=== PATIENT | male | born 1950 | race Caucasian/White ===

== ENCOUNTER 2023-07-21 05:04 | Emergency (ER) | payer MEDICARE, SELFPAY ==
[2023-07-21 05:07] VITALS: BP 136/94
--- NOTE | 2023-07-21 06:18 | ED.GENMED ---
History of Present Illness
General
Chief Complaint: Musculo-Skeletal Complaint
Source: patient
Exam Limitations: none
Time Seen by Provider: 07/21/23 06:01
Nursing documentation reviewed up to this point in time: agreed with
Travel History
Have you had any contact with someone who has COVID-19?: No
Do you have any symptoms of coronavirus? Fever > 100 degrees, chills, cough, shortness of breath, sore throat, loss of taste or smell, muscle aches, or headache?: No
History of Present Illness
History of Present Illness:
73-year-old male with a past medical history of hypertension, Parkinson's disease who presents to the emergency department for evaluation after slip and fall complaining of left rib pain. 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
around 7 PM. He says that he lost his balance and fell from ground-level. He says that he landed on his left side and injured his left ribs. He says that he did not hit his head or lose consciousness. He denies any headache. Denies any neck
pain. Denies any back pain. Denies any shortness of breath. He denies any abdominal pain. No pain in his arms or his legs. He has been ambulatory since the fall�typically ambulates with a cane. He says that he took some naproxen last night
before bed but this morning when he woke up his pain was worse and so he came to the emergency room to be assessed. He he denies being on any blood thinners�medication list shows that he is on full dose aspirin but patient denies to me, says he is
no longer taking.
Review of Systems
Review of Systems
All Other Systems: ROS reviewed and negative except as documented in HPI and ROS
Constitutional: Denies fever
Respiratory: Denies trouble breathing
Cardiac: Reports chest pain (Rib pain); Denies palpitations
ABD/GI: Denies abdominal pain, nausea or vomiting
: Denies flank pain
Musculoskeletal: Denies neck pain or back pain
Neurological: Denies dizzy, headache, weakness or numbness
Phy Exam
Physical Exam
Physical Exam:
General: Awake, alert, oriented x3; bradykinesia noted
Head: Normocephalic, atraumatic
Eyes: Conjunctiva normal, pupils equal round and reactive to light bilaterally
Throat: Airway intact, handling secretions, mouth/tongue atraumatic
Neck: Trachea midline, no tenderness in the cervical spine
Back: No signs of trauma the back or flank; no tenderness in the thoracic or lumbar spine; no tenderness in the posterior ribs
Lungs: Clear to auscultation bilaterally, no wheezing, rales, rhonchi
Heart: Regular rate and rhythm, no murmurs, gallops, or rubs; he has tenderness around ribs 7, 8, and 9 anterior-lateral around the nipple line; no chest wall tenderness, no ecchymosis to the chest wall
Abd: Soft, non distended, nontender with no abdominal bruising
Neuro: Cranial nerves grossly intact, speech fluid, ambulatory in the emergency room
Skin: no rash
Extremities: Atraumatic, moving all extremities to full active range of motion without apparent discomfort, able to bear weight and walk in the emergency room, no edema in extremities, warm well-perfused
Scores
Heart Failure Risk
Heart Failure Risk Score: Not Applicable
Heart Score for Chest Pain Patients
STEMI patient?: Not applicable
Withdrawal Assessment of Alcohol
Withdrawal Assessment Completed?: Not applicable
Course
Orders/Labs/Results
Orders:
Orders
07/21/23 05:13
Ribs, Left 3 View W/PA Chest CR [CR Ribs-left 3 Vw W/pa Chest] Urgent
Comment:
Reason For Exam: slip and fall on ice yesterday
07/21/23 06:13
Acetaminophen [Tylenol] 1,000 mg PO NOW STA
Ketorolac [Toradol] 30 mg IM NOW STA
Lidocaine [Lidocaine 4% Patch] 1 patch TOPICAL ONCE ONE
07/21/23 07:09
Incentive Spirometry [Rx Incentive Spirometry] [RESP] Urgent
Frequency: q1h while awake
Vital Signs
Initial and Last Documented VS:
Initial Vital Signs
Temp Pulse Resp BP Pulse Ox
36.6 C 94 24 136/94 95
07/21/23 05:07 07/21/23 05:07 07/21/23 05:07 07/21/23 05:07 07/21/23 05:07
Last Documented Vital Signs
Temp Pulse Resp BP Pulse Ox
36.6 C 87 18 138/75 99
07/21/23 05:07 07/21/23 07:14 07/21/23 07:14 07/21/23 07:14 07/21/23 07:14
MDM/Problems Addressed
Differential Diagnosis Includes:
Rib fractures, bruised ribs, costochondritis
MDM/Problems Addressed:
73-year-old male presents after mechanical trip and fall last night complaining of pain in his left ribs. No other injuries. Not on blood thinners. Vital signs here within normal limits. Exam as above. He had an x-ray/rib series ordered in
triage reviewed independently by fortino to show 3 left-sided rib fractures in the area of concern. No pneumothorax or hemothorax noted. He has no other injuries; no head trauma�no indication for neuroimaging or other imaging at this point.
Pain currently uncontrolled. I had a long discussion with the patient--explained increased morbidity and mortality with multiple rib fractures in patient greater than 70 years old. Explained that admission likely indicated for pain control and
observation, incentive spirometry. Patient strongly prefers to try to control his pain here and be discharged home. Will trial Toradol, Tylenol, Lidoderm to start and reassess.
After pain medication patient says his pain is down to a 2/10 that he feels much better. He is requesting to be discharged. Using shared decision making patient will be discharged with his pain well controlled here; provided incentive spirometer
to take home and instructions on use. Will have him take Tylenol/Motrin and use Lidoderm [id number] for the next few days and follow-up with his primary care physician. He feels comfortable with this plan. Spoke about return precautions and
all questions answered.
Chronic conditions affecting care:
Parkinson's with chronic balance issues�presents after a fall
*Radiology
Radiology exam reviewed: preliminary read by ED provider
*Pulse Oximetry
Patient hypoxic: no
*Critical Care Note
Total Time (30-74mins, 75-104mins- exclusive of procedures): Not Applicable
Data Reviewed
Source: patient
Patient Management
Escalation/DeEscalation of care consider admission/obs:
Admission likely indicated and recommended but after long discussion with patient his preference is to try to control pain here and be discharged�using shared decision making discharged with strict return precautions
ED Attending Note
-
Portions of this chart may have been created with voice recognition software.� Occasional wrong word or��sound alike� substitutions may have occurred due to the inherent limitations of voice recognition software.
Discharge Plan
Departure
Patient Disposition: Home (Routine Discharge)
Date of Disposition: 07/21/23
Time of Disposition: 07:06
Patient with high blood pressure during this ER visit?: No
Discharge Problem:
Multiple rib fractures
Instructions: Rib fractures in adults
Prescriptions:
New
ibuprofen 400 mg tablet
400 mg PO Q6H PRN (Reason: Pain) Qty: 30 0RF
acetaminophen 500 mg capsule
1,000 mg PO Q6H PRN (Reason: Pain) Qty: 60 0RF
lidocaine 5 % adhesive patch,medicated
1 patch topical DAILY Qty: 30 0RF
No Action
clonidine HCl 0.1 MG tablet
0.1 mg PO DAILY
lisinopril-hydrochlorothiazide 1 EACH tablet
1 ea PO DAILY
Levothyroxine
0.088 mg PO DAILY
mupirocin 1 APPLIC ointment
intranasal BID
oxycodone 5 MG tablet
5 mg PO Q4HPRN PRN (Reason: pain) Qty: 60 0RF
Rx Instructions:
1-2 tabs po Q4-6 hours prn
prochlorperazine maleate 5 MG tablet
5 mg PO Q6HPRN PRN (Reason: nausea) Qty: 40 0RF
docusate sodium 100 MG capsule
100 mg PO BID Qty: 30 0RF
sennosides [senna] 1 TABLET tablet
2 tab PO BID Qty: 40 0RF
acetaminophen 325 MG tablet
650 mg PO Q4HPRN PRN (Reason: pain, fever) Qty: 60 0RF
aspirin 325 MG tablet,delayed release (DR/EC)
325 mg PO DAILY Qty: 30 0RF
Referrals:
Андрей Manriquez DO [Family Provider] - Follow up in 5-7 days
Activity Restrictions/Additional Instructions:
Thank you for visiting the Emergency Department at [facility].
1. Please schedule a follow up appointment as directed. Call first thing tomorrow morning to make an appointment.
2. If indicated, please take your medications as instructed and indicated on discharge paperwork.
3. If any of your symptoms do not improve, or persist, or become more severe within 6-12 hours, please return to the emergency department for further care.
4. Please return to the emergency department if you develop a headache, neck pain/stiffness, fever greater than 100.4F, chest pain, shortness of breath, persistent nausea, vomiting, slurred speech, difficulty walking, numbness/tingling, weakness,
signs of infection or any other symptoms that are worrisome to you.
Please call [phone] if you have any questions.
Interventions
Interventions:
*Risk Screen - Suicide Last Done: 07/21/23 05:07
*General Assessment Last Done: 07/21/23 06:20
*Neglect/Abuse Screening Last Done: 07/21/23 05:07
ED- Fall Risk Assessment Last Done: 07/21/23 06:28
*ED COVID-19 Vaccine History Last Done: 07/21/23 06:20
*Nursing Disposition Last Done: 07/21/23 07:14
ED-Musculoskeletal Assessment Last Done: 07/21/23 06:28
ED- Neurological Assessment Last Done: 07/21/23 06:28
ED-Skin Assessment Last Done: 07/21/23 06:28
Discharge Date and Time
Discharge Date/Time: 07/21/23 07:15
[2023-07-21 06:20] VITALS: BMI 33.2
[2023-07-21] MEDS: TORADOL 30 MG IM (06:21)
[2023-07-21] MEDS: TYLENOL 1000 MG PO (06:21)
[2023-07-21] MEDS: LIDOCAINE 4% PATCH 1 PATCH TOPICAL (06:22)
[2023-07-21 07:14] VITALS: BP 138/75
== END 2023-07-21 07:15 | disposition home or self-care (01) ==
LOC: EMR 05:04
PROVIDERS: EMERGENCY PHYSICIAN Emergency Medicine; FAMILY PHYSICIAN Family Medicine
DX: S22.42XA Multiple fractures of ribs, left side, initial encounter for closed fracture (principal); W00.0XXA Fall on same level due to ice and snow, initial encounter; I10 Essential (primary) hypertension; G20.A1 Parkinson's disease without dyskinesia, without mention of fluctuations; M19.90 Unspecified osteoarthritis, unspecified site; Z85.828 Personal history of other malignant neoplasm of skin; Z91.048 Other nonmedicinal substance allergy status
CPT/HCPCS: 99284; 96372; 71101

== ENCOUNTER 2023-10-28 12:46 | Inpatient (IN) | payer MEDICARE, SELFPAY ==
[2023-10-23 18:20] VITALS: BP 136/88
[2023-10-23 19:39] VITALS: BP 153/80
[2023-10-23 20:35] VITALS: BP 142/79
--- NOTE | 2023-10-23 21:31 | ED.GENMED ---
History of Present Illness
General
Chief Complaint: Fall
Source: patient
Exam Limitations: none
Time Seen by Provider: 10/23/23 19:49
Travel History
Have you had any contact with someone who has COVID-19?: No
Do you have any symptoms of coronavirus? Fever > 100 degrees, chills, cough, shortness of breath, sore throat, loss of taste or smell, muscle aches, or headache?: No
History of Present Illness
History of Present Illness:
73yr old male with past medical history of Parkinson's presents to the ER for evaluation after fall. Patient tripped at work fell hitting his head. He denies loss of consciousness, fall was witnessed. He reports he does have Parkinson's and has
issues with balance. He is followed by Dr. Don Duran in [place], [place].
He reports he fell yesterday . He is not on blood thinners. Denies any headache. Unsure of his last tetanus.
Review of Systems
Review of Systems
Allergies reviewed?: Yes
All Other Systems: ROS reviewed and negative except as documented in HPI and ROS
Constitutional: Reports no symptoms; Denies fever, fatigue or chills
Respiratory: Reports no symptoms
Cardiac: Reports no symptoms
ABD/GI: Reports no symptoms; Denies nausea or vomiting
Skin: Reports other (laceration to left forehead )
Neurological: Denies dizzy or headache
Psychiatric: Reports no symptoms
Phy Exam
General Physical Exam
General Presentation: no apparent distress
General age: appears stated age
General Skin: warm and dry
General Habitus: normal
General Mental: alert
General Hydration: appears well hydrated
Eye Exam
Eye Exam: PERRL and EOMI
Eye Exam General: PERRL: bilateral and EOM intact: bilateral
Pupil Exam: Bilateral: round and reactive
Neurological Exam
Neurological Exam: alert and oriented x3
Musculoskeletal Exam
Musculoskeletal Exam: full ROM
Skin Exam
Skin Exam: normal color, warm/dry and other (+ vertical full-thickness linear laceration approximate 4 cm to left forehead with surrounding hematoma)
Psychiatric Exam
Psychiatric Exam: normal mood/affect
Course
Orders/Labs/Results
Orders:
Orders
10/23/23 19:49
CT Head W/o Iv Contrast Urgent
Comment:
Reason For Exam: trauma
10/23/23 19:50
CT Cervical Spine W/o Iv Contr Urgent
Comment:
Reason For Exam: trauma
10/23/23 21:33
Tetanus/Diphth/Acelpertussis [Adacel] 0.5 ml IM .ONCE ONE
10/23/23 22:03
IV Insert/Care/Rem.- Treatment PRN
10/23/23 22:44
Complete Blood Count/With Diff Urgent
Comprehensive Metabolic Panel Urgent
Urinalysis Reflex To Culture Urgent
Date Specimen was Collected: 10/23/23
Time Specimen was Collected: 22:27
Urine Microscopic Reflex Cult Urgent
Abnormal Lab Results
10/23/23
22:44
Abs Immat Gran (auto) 0.1 H 10^3/uL
(0-0.05)
Absolute Neuts (auto) 6.6 H 10^3/uL
(1.4-6.5)
Absolute Monos (auto) 1.0 H 10^3/uL
(0.1-0.6)
Immature Gran % 1.2 H %
(0-0.5)
Lymphocytes % 16.6 L %
(20.5-51.1)
Monocytes % 10.8 H %
(1.7-9.3)
Potassium 3.3 L mmol/L
(3.5-5.1)
Glucose 142 H mg/dl
(70-99)
Ur Occult Blood Reflex 1+ A
(Negative)
Urine RBC 7-10 A /HPF
(0-2)
10/23/23 22:44
10/23/23 22:44
Vital Signs
Initial and Last Documented VS:
Initial Vital Signs
Temp Pulse Resp BP Pulse Ox
98.3 F 83 18 136/88 98
10/23/23 18:20 10/23/23 18:20 10/23/23 18:20 10/23/23 18:20 10/23/23 18:20
Last Documented Vital Signs
Temp Pulse Resp BP Pulse Ox
98.4 F 75 16 136/74 93
10/23/23 22:44 10/23/23 22:44 10/23/23 22:44 10/23/23 22:44 10/23/23 22:44
Procedures
Laceration Closure
left anterior forehead:
Status of Wound: clean
Size of Wound in cm: 4
Description of Wound Edges: sharp
Preparation: cleaned with saline
Anesthesia: 1% Lidocaine with epi
Revision/Debridement: routine- no revision
Type of Closure: single layer closure and interrupted sutures
Skin Closure Material: 5-0 prolene
Number of sutures: 13
MDM/Problems Addressed
Differential Diagnosis Includes:
Not limited to intracranial hemorrhage scalp laceration head injury
MDM/Problems Addressed:
Patient 73-year-old male with balance issues from Parkinson's slipped and fell at work hitting left head. Patient is followed by neurologist in [place] admits to having more frequent falls fell yesterday.
he does have a laceration with surrounding hematoma ;no loss of consciousness no blood thinners .he is awake alert no nausea vomiting answering questions however very ataxic and unsteady. Patient required 2 nurses to walk next to him patient is
almost ataxic. No other complaints of injury or pain. not safe to go home. lives alone will admit.
Chronic conditions affecting care:
Parkinson's
*Radiology
Radiology exam reviewed: radiology read reviewed
*Pulse Oximetry
Patient hypoxic: no
*Critical Care Note
Total Time (30-74mins, 75-104mins- exclusive of procedures): Not Applicable
ED Attending Note
-
Portions of this chart may have been created with voice recognition software.� Occasional wrong word or��sound alike� substitutions may have occurred due to the inherent limitations of voice recognition software.
Discharge Plan
Departure
Patient Disposition: Admit
Date of Disposition: 10/23/23
Time of Disposition: 23:24
Admit to: Med/Surg
Admit to doctor: hospitalist
Presentation/result/management discussed w/ accepting MD/DO: Hospitalist
Patient with high blood pressure during this ER visit?: Yes
Condition: Fair
Covid-19: Not Applicable
Discharge Problem:
Head injury, Laceration of scalp, frequent falls, Ataxia
Prescriptions:
No Action
clonidine HCl 0.1 MG tablet
0.1 mg PO DAILY
lisinopril-hydrochlorothiazide 1 EACH tablet
1 ea PO DAILY
Levothyroxine
0.088 mg PO DAILY
mupirocin 1 APPLIC ointment
intranasal BID
oxycodone 5 MG tablet
5 mg PO Q4HPRN PRN (Reason: pain) Qty: 60 0RF
Rx Instructions:
1-2 tabs po Q4-6 hours prn
prochlorperazine maleate 5 MG tablet
5 mg PO Q6HPRN PRN (Reason: nausea) Qty: 40 0RF
docusate sodium 100 MG capsule
100 mg PO BID Qty: 30 0RF
sennosides [senna] 1 TABLET tablet
2 tab PO BID Qty: 40 0RF
acetaminophen 325 MG tablet
650 mg PO Q4HPRN PRN (Reason: pain, fever) Qty: 60 0RF
aspirin 325 MG tablet,delayed release (DR/EC)
325 mg PO DAILY Qty: 30 0RF
ibuprofen 400 mg tablet
400 mg PO Q6H PRN (Reason: Pain) Qty: 30 0RF
acetaminophen 500 mg capsule
1,000 mg PO Q6H PRN (Reason: Pain) Qty: 60 0RF
lidocaine 5 % adhesive patch,medicated
1 patch topical DAILY Qty: 30 0RF
Referrals:
Андрей Manriquez DO [Family Provider] -
Interventions
Interventions:
*Risk Screen - Suicide Last Done: 10/23/23 18:20
*General Assessment Last Done: 10/23/23 18:20
*Neglect/Abuse Screening Last Done: 10/23/23 18:20
*ED COVID-19 Vaccine History Last Done: 10/23/23 18:20
ED-Musculoskeletal Assessment Last Done: 10/23/23 19:42
ED- Neurological Assessment Last Done: 10/23/23 20:36
ED-Skin Assessment Last Done: 10/23/23 19:42
Discharge Date and Time
Print Language: ICELANDIC
[2023-10-23] MEDS: ADACEL 0.5 ML IM (21:47)
[2023-10-23 22:43] VITALS: BMI 34.9
[2023-10-23 22:44] VITALS: BP 136/74
[2023-10-23 22:52] LABS: Urine Albumin Trace (Neg - Trace); Urine Bilirubin Negative (Negative); Urine Character Clear (Clear); Urine Color Yellow; Urine Glucose Negative (Negative); Urine Ketone Negative (Negative); Urine Leukocyte Negative (Negative); Urine Nitrite Negative (Negative); Urine Occult Blood 1+ (Negative); Urine Specific Gravity 1.025 (<1.030); Urine Urobilinogen Negative (Neg - 1+)
[2023-10-23 22:53] LABS: % Basophils 0.6 % (0-2); % Immature Granulocytes 1.2 % (0-0.5); % Lymphocytes 16.6 % (20.5-51.1); % Monocytes 10.8 % (1.7-9.3); % Neutrophils 70.8 % (42.2-75.2); Absolute Basophils 0.1 10^3/uL (0-0.2); Absolute Immature Granulocytes 0.1 10^3/uL (0-0.05); Absolute Lymphocytes 1.6 10^3/uL (1.2-3.4); Absolute Neutrophils 6.6 10^3/uL (1.4-6.5); Hematocrit 45.1 % (39.0-52.0); Hemoglobin 15.1 g/dL (13.0-18.0); Mean Corp Hgb Conc. 33.5 g/dL (33.0-37.0); Mean Corpuscular Hgb 30.5 pg (27.0-31.0); Mean Corpuscular Volume 91.1 fL (80.0-94.0); Mean Platelet Volume 10.4 fL (7.4-10.4); Nucleated Red Blood Cells % 0 % (-); Platelet Count 219 10^3/uL (130-400); Red Blood Cell Count 4.95 10^6/uL (4.70-6.10); White Blood Cell Count 9.3 10^3/uL (4.8-10.8)
[2023-10-23 23:00] VITALS: BP 133/79
[2023-10-23 23:00] LABS: Urine Squamous Cell 0-2 /LPF (Few)
[2023-10-23 23:01] LABS: Urine White Cell None Seen /HPF (0-5)
[2023-10-23 23:14] LABS: ALT (SGPT) 26 U/L (0-50); AST (SGOT) 29 U/L (17-59); Albumin 4.1 g/dl (3.5-5.0); Alkaline Phosphatase 82 U/L (38-126); Blood Urea Nitrogen 18 mg/dl (9-20); Calcium 9.2 mg/dl (8.4-10.2); Carbon Dioxide 27 mmol/L (22-30); Chloride 103 mmol/L (98-107); Estimated Creatinine Clearance 117 ml/min; Glucose 142 mg/dl (70-99); Potassium 3.3 mmol/L (3.5-5.1); Sodium 136 mmol/L (135-145); Total Bilirubin 0.5 mg/dl (0.2-1.3); Total Protein 7.2 g/dl (6.3-8.2); eGFR > 60.00
[2023-10-24] VITALS (8 sets, daily range): BP systolic 116–160; BP diastolic 65–95; PULSE 75–84; BMI 33.9
--- NOTE | 2023-10-24 00:05 | HPS.HSE ---
Family Physician
-
Family Physician: Андрей Manriquez
Chief Complaint
-
Fall with Head Injury
History of Present Illness
Patient is a 73 y/o male with a past medical history of Parkinson's disease, hypertension, hyperlipidemia, and hypothyroidism who presents for a mechanical fall earlier today. He reports that he stepped backwards, which prompted his fall. He
normally ambulates with a cane and states that stepping backwards normally precipitates his falls. When he fell today, he hit his head on the corner of a table. He admits to a mechanical fall yesterday that was precipitated by stepping backwards. He
fell into a couch and injured his ribs on the right side. He denies loss of consciousness, lightheadedness, dizziness, palpitations, chest pain, shortness of breath. He admits that he has felt increasingly unsteady over the past few weeks.
Medical History
Past Medical History
Past Medical History: Reports Other
Additional Past Medical History:
Parkinson's Disease
Essential Hypertension
Hypothyroidism
Depression
Past Surgical History: Reports Other
Additional Past Surgical History:
Multiple Moh's Procedures
Umbilical Hernia Repair
Right Total Hip Replacement
Social History
Tobacco: Former Smoker
Alcohol: Occasional
Family History
Family History: Not pertinent
Allergies / Home Medications
Allergies reflects when Allergies were last updated in [facility].
Home Medications with original date entered in [facility]
Allergy/Medication List:
Allergies
Allergy/AdvReac Type Severity Reaction Status Date / Time
adhesive Allergy inflamation Verified 10/23/23 18:22
Home Medications
levothyroxine 88 mcg tablet 88 mcg PO DAILY ##0 02/16/18
amlodipine 5 mg tablet 5 mg PO HS 10/23/23
bupropion HCl 300 mg 24 hr tablet, extended release 300 mg PO DAILY 10/23/23
hydrochlorothiazide 25 mg tablet 25 mg PO DAILY 10/23/23
rasagiline 1 mg tablet 1 mg PO DAILY 10/23/23
valsartan 80 mg tablet 80 mg PO HS 10/23/23
Review of Systems
-
A 12 point ROS was completed and negative except as noted: Yes
Constitutional: Denies Fever or Chills
Respiratory: Denies Cough or Trouble Breathing
Cardiac: Denies Chest Pain or Palpitations
Physical Exam
Vital Signs
Vital Signs
Temp Pulse Resp BP Pulse Ox
98.4 F 77 22 133/79 94
10/23/23 22:44 10/23/23 23:15 10/23/23 23:15 10/23/23 23:00 10/23/23 23:15
Physical Exam
General: Comfortable and Conversant
HEENT: Anicteric, Moist mucous membranes, PERRLA (EOMI) and Other (Laceration Left Forearm)
Respiratory: Clear and Decreased Breath Sounds (Poor inspiratory effort)
Cardiac: S1/S2 and Regular Rhythm
GI: Soft and Non Tender
Rectal: Deferred by Provider
Musculoskeletal: No Clubbing, No Cyanosis and No Edema
Skin: Warm and Dry
Neuro: Awake, Alert, Oriented and No Motor Deficits
Psych: Calm
Laboratory Results
-
10/23/23 22:44
10/23/23 22:44
Laboratory Results
Total Bilirubin 0.5 mg/dl (0.2-1.3) 10/23/23 22:44
AST 29 U/L (17-59) 10/23/23 22:44
ALT 26 U/L (0-50) 10/23/23 22:44
Alkaline Phosphatase 82 U/L (38-126) 10/23/23 22:44
Impression/Plan
-
Ambulatory Dysfunction
Mechanical Fall resulting in Left Forehead Laceration and Scalp Hematoma
-Consult PT/OT
-Check Orthostatic VS
-Check Right Rib X-ray
Hypokalemia, mild, likely related to HCTZ
-Replace potassium
-Recheck labs in AM
Parkinson's Disease
-Patient follows with Neurologist in [place]
-Continue rasagiline
Essential Hypertension
-Continue amlodipine and valsartan
-Hold HCTZ
Hypothyroidism
-Continue levothyroxine
Depression
-Continue bupropion
DVT proph: SCDs
Code Status: Full Code
[2023-10-24] MEDS: KCL 20 MEQ PO (00:29)
--- NOTE | 2023-10-24 01:21 | PTCARENOTE ---
Patient arrived from ED, able to stand and walk to room with assist. Patient with shuffling gait. Able to participate in admission, good historian. Placed on bed alarm with multiple falls daily. Forehead laceration with drainage, covered with
adhesive foam. Patient with R rib pain, offered Tylenol. Patient able to sit up in bed to eat boxed lunch.
--- NOTE | 2023-10-24 01:42 | W.PN.UPDATE ---
Update Note
Progress Note Update
Patient seen independently and in conjunction with [facility] [employer] [employer]. I concur with the findings on history physical exam and the assessment and plan as stated in the H&P by the [facility] [employer].
Briefly this is a 73-year-old male with a longstanding history of Parkinson disease and a recurrent fall who presents to the emergency department with episode of mechanical fall as he was backing up. He did hit his head and suffered a laceration.
He is not on any anticoagulation. He had no focal neurological deficits. He had no syncopal episode. He had no presyncopal episode. Denies any palpitation nausea vomiting or chest pain. There was no shortness of breath.
In the ED was hemodynamically stable and in no acute distress. His laceration was repaired. CT of the head shows no acute intracranial process. Neurological exam shows no focal deficits. He remains ataxic and at high risk for fall upon
immediately heading home.
I agree with the plan as indicated for the mechanical fall. Obs admission. PT evaluation, check orthostatics, rule out UA, check TSH and replete electrolytes.
[2023-10-24] MEDS: SYNTHROID 88 MCG PO (05:24)
[2023-10-24] MEDS: TYLENOL 650 MG PO ×2 (05:31→22:23)
[2023-10-24 06:52] LABS: Hematocrit 43.8 % (39.0-52.0); Hemoglobin 14.9 g/dL (13.0-18.0); Mean Corpuscular Hgb 30.2 pg (27.0-31.0); Mean Corpuscular Volume 88.8 fL (80.0-94.0); Mean Platelet Volume 10.9 fL (7.4-10.4); Platelet Count 226 10^3/uL (130-400); Red Blood Cell Count 4.93 10^6/uL (4.70-6.10)
[2023-10-24 07:38] LABS: Blood Urea Nitrogen 15 mg/dl (9-20); Calcium 8.9 mg/dl (8.4-10.2); Carbon Dioxide 27 mmol/L (22-30); Chloride 105 mmol/L (98-107); Estimated Creatinine Clearance 115 ml/min; Glucose 86 mg/dl (70-99); Potassium 3.4 mmol/L (3.5-5.1); Sodium 137 mmol/L (135-145); eGFR > 60.00
[2023-10-24 07:45] LABS: TSH Reflex To Free T4 2.27 uIU/ml (0.47-4.68)
--- NOTE | 2023-10-24 08:21 | W.PN.UPDATE ---
Update Note
Progress Note Update
73-year-old male with a past medical history of Parkinson's disease was admitted early this morning for mechanical fall secondary to ambulatory dysfunction.
Appreciate neurology input, recommend starting carbidopa/levodopa 25/100 half a tablet 3 times a day.
UA negative for infection, potassium still low at 3.4 today, continue to replete.
PT/OT, follow-up orthostatic vital signs.
Consult wound care for his forehead laceration.
--- NOTE | 2023-10-24 08:47 | CON.NEURO4 ---
Addendum entered and electronically signed by Arvind Potts MD 10/24/23 13:05:
I saw and evaluate the patient I reviewed the note by Heather Blank agree with the findings the following comments:
73-year-old male with a past medical history of Parkinson's disease presents to the hospital with abnormal gait and increasing falls. Patient reports he has had a diagnosis of Parkinson's disease based on abnormal DaTscan from around 1 year ago.
He was started on Azilect around 6 months ago does not seem to have improved his walking or movements very much. He denies a history of tremor. Does report he has had slow and soft speech which accompanied his gait issues. Has had increasing
falls over the past few months.
Neurologic examination
Moderate parkinsonism, hypophonic speech with mildly flattened affect and decreased spontaneous facial expressions and blinking
No significant rigidity or tremors appreciated
Symmetric motor strength with no pronator drift
No ataxia and spontaneous movement
CT head noncontrast no acute finding
Assessment: Parkinsonism manifesting with flattened affect decreased facial expressions and blinking and gait disorder, no tremor and little to no significant rigidity on this examination.
-Parkinson's disease along with progressive supranuclear palsy and dementia with Lewy bodies are all in the differential diagnosis
-Patient currently maintained on Azilect
-Suspect this is most likely progression of his parkinsonian disorder, it is a bit early for the course of traditional Parkinson's disease to have this many falls this early so I would be concerned about another parkinsonian disorder (progressive
supranuclear palsy, Lewy body dementia)
-He has not been tried on Sinemet and I do think that it would be worthwhile to give this medication a try which offers decent chance of benefits for his motor symptoms
Recommendations
-Check blood work and urinalysis for infection or abnormal electrolytes or kidney function
-Check orthostatic vital signs
-Physical therapy occupational therapy evaluations
-Continue his home Azilect
-Would start carbidopa/levodopa 25/100 half a tablet 3 times a day discussed the medication with the patient along with potential side effects most commonly nausea and lightheadedness or dizziness
-Encouraged him to follow-up with his regular neurologist in the neart future
-Not recommending futher neurologic imaging
-Avoid antipsychotics and sedating medications
Original Note:
Consultation - Neurology 4
-
CONSULTING PHYSICIAN: Nilsa Potts MD
REFERRING PHYSICIAN: Hospitalists/Jelena Plunkett PA-C
DICTATED BY: EMERSON Reddy
DATE/TIME OF REQUEST: 10/23/23
DATE/TIME OF CONSULTATION: 10/24/23
Reason for Consultation: Parkinson disease, fall
History of Present Illness:
This is a 73-year-old right-handed male who has presented to the hospital with a fall with head trauma. Patient has Parkinson disease and is followed by Dr. Mayela Gayle at [facility]. One year ago he started falling frequently, his speech
was hypophonic and slow, and his affect was flat. He reports some issues with constipation and small handwriting. He was subsequently sent for a KINSEY scan which he reports was positive. He was started on Azilect 1mg daily about 6 months ago and
reports that this has helped improve his speech and affect but has not made his ambulation any better. He denies ever taking any other medications for Parkinson disease. He started using a cane with ambulation about one year ago. He was falling a
few times per week but for the past couple of months now he has been falling daily. He reports that his feet don't move when his body wants to, especially when trying to turn left or step backwards, and he trips. He denies any dizziness or warning
that he is going to fall. Yesterday (10/23/23), he was at work at [employer] when he took a step backwards, tripped, and fell hitting his left forehead on the corner of a table obtaining a laceration. CT head was obtained on arrival in the ER and
demonstrates a small left frontal scalp hematoma and laceration, no other intracranial abnormalities. CT cervical spine was obtained and is negative for any acute findings. Orthostatic vital signs have not been obtained yet but were previously
positive in 2018. Patient denies any headache, dizziness, vision changes, speech/swallow difficulty, numbness, weakness, chest pain, palpitations, and shortness of breath. He denies any recent fevers or illnesses. He is not taking any blood-thinning
medications. He lives alone and is still driving without any issues.
Past Medical History: Parkinson disease, HTN, hypothyroidism, depression
Surgical History: Multiple Moh's procedures, umbilical hernia repair, R THR
Family History: Reviewed and noncontributory.
Social History: Former smoker. Occasional alcohol. Denies illicit drug use.
Allergies: Adhesive.
Home Medications: See below.
Review of Symptoms:
Patient denies any fever, headache, chest pain, shortness of breath, GI or symptoms.
�Per the HPI.�All systems are reviewed negative except above.
Physical Exam:
The patient is afebrile, abdomen is nondistended, breathing is unlabored, skin is warm and dry, no edema. there is a bandage covering his left forehead.
Neurologic Examination:
The patient is awake, alert and oriented x 3. He is able to follow commands and answer questions appropriately. There is no aphasia or dysarthria. Speech is hypophonic and affect is flat. On cranial nerve assessment, pupils are 3 mm bilateral,
round and reactive to light and accommodation. Visual simmons are full. Extraocular movements are intact. Facial sensations are intact and bilaterally symmetrical, there is no facial asymmetry. Hearing is intact bilaterally to normal conversation
volume. Tongue palate and uvula are midline. Sternocleidomastoid strengths are full bilaterally. Motor strengths are 5/5 bilateral upper and lower extremities on medical research [place] scale. There is no drift or involuntary movement noted. No
rigidity or cogwheeling noted. Deep tendon reflexes are 2+ bilateral upper and lower extremities and Babinski is absent bilaterally. Sensations of touch, temperature and vibration are intact and bilaterally symmetrical. There was no extinction noted
on double simultaneous stimulation. Coordination is intact by finger to nose bilaterally.
Lab Results: See below.
Neuro Imaging:
1. CT Head 10/23/23: No acute intracranial abnormality. Small left frontal scalp hematoma and laceration.
2. CT Cervical spine 10/23/23: No acute fracture or dislocation. Chronic degenerative changes of the cervical spine, as detailed above.
Differentials for the patient's presentation include:
1. Likely mechanical fall with superficial head trauma in the setting of Parkinson disease with chronic gait dysfunction.
2. Orthostasis possibly contributing to falls.
Patient has the following risk factors for their symptoms: parkinson disease, gait dysfunction
Recommendations:
-Continue home Azilect 1mg daily.
-Discussed with patient initiating Sinemet 25-100 1/2 tab TID and possible side effects, patient would like to start this now rather than waiting to see his Neurologist, med ordered.
-PT/OT evaluations.
-DVT prophylaxis.
-Do not see a role for further neurological imaging.
-Patient should follow-up with his outpatient Neurologist in the next several weeks.
Discussed patient care with: Dr. Potts, the patient
Vital Signs and Labs
-
Vital Signs and Labs:
Vital Signs
Temp Pulse Resp BP Pulse Ox
97.8 F 72 18 116/65 93
10/24/23 07:51 10/24/23 07:51 10/24/23 07:51 10/24/23 07:51 10/24/23 07:51
Lab Results
10/24/23 06:21
10/24/23 06:21
Sodium 137 mmol/L (135-145) 10/24/23 06:21
Potassium 3.4 mmol/L (3.5-5.1) L 10/24/23 06:21
BUN 15 mg/dl (9-20) 10/24/23 06:21
Glucose 86 mg/dl (70-99) 10/24/23 06:21
Calcium 8.9 mg/dl (8.4-10.2) 10/24/23 06:21
Medications
-
Active Medications
Generic Name Dose Route Start Last Admin
Trade Name Freq PRN Reason Stop Dose Admin
Acetaminophen 650 mg 10/24/23 00:58 10/24/23 05:31
Acetaminophen 325 Mg Tablet PO 11/21/23 00:57 650 mg
Q4HPRN PRN Administration
mild pain/ fever>100.5F
Amlodipine Besylate 5 mg 10/24/23 22:00
Amlodipine 5 Mg Tablet PO 11/21/23 21:59
HS LA NENA
Bupropion HCl 300 mg 10/24/23 08:00
Bupropion (24hr) Extended Release 300 Mg Tablet PO 11/21/23 07:59
DAILY LA NENA
Levothyroxine Sodium 88 mcg 10/24/23 06:00 10/24/23 05:24
Levothyroxine 88 Mcg Tablet PO 11/21/23 05:59 88 mcg
DAILY @ 0600 LA NENA Administration
Rasagiline 1 mg 10/24/23 08:00
Rasagiline (Azilect) 0.5 Mg Tablet (Non-Form) PO 11/21/23 07:59
DAILY LA NENA
Sodium Chloride 0 flush 10/24/23 01:00
Sodium Chloride 0.9% (Flush) Syringe IV 11/21/23 00:59
PER PROTOCOL LA NENA
Valsartan 80 mg 10/24/23 22:00
Valsartan 80 Mg Tablet PO 11/21/23 21:59
HS LA NENA
Home Medications
�Medication �Instructions �Recorded
levothyroxine 88 mcg tablet 88 mcg PO DAILY ##0 02/16/18
amlodipine 5 mg tablet 5 mg PO HS 10/23/23
bupropion HCl 300 mg 24 hr tablet, 300 mg PO DAILY 10/23/23
extended release
hydrochlorothiazide 25 mg tablet 25 mg PO DAILY 10/23/23
rasagiline 1 mg tablet 1 mg PO DAILY 10/23/23
valsartan 80 mg tablet 80 mg PO HS 10/23/23
[2023-10-24] MEDS: WELLBUTRIN XL (24 hour extended release) 300 MG PO (09:56)
[2023-10-24] MEDS: KCL 40 MEQ PO (09:56)
[2023-10-24] MEDS: RASAGILINE MESYLATE 1 MG PO (09:56)
[2023-10-24] MEDS: SINEMET 25-100 0.5 TABLET PO ×3 (13:40→22:18)
--- NOTE | 2023-10-24 16:30 | WOUNDNOTE ---
LEFT HEAD AND SHOULDER
--- NOTE | 2023-10-24 16:35 | WOUNDNOTE ---
[facility] RN NOTE: Reviewed chart, met with patient and RNDahlia. Patient alert, fair historian of events. He has a laceration with sutures, no draining or erythema noted. Some ecchymosis noted on left side of head and left shoulder. Patient denies pain.
Laceration covered with adaptic and dry dressing. Buttocks blanchable red, heels intact. Air cushion added to chair. Patient is on a [facility] Air bed. He demonstrate ability to stand with minimal assist. He demonstrated good appetite and ate 100%
of lunch. Will continue to follow as needed.
[2023-10-24] MEDS: DIOVAN 80 MG PO (22:18)
[2023-10-24] MEDS: NORVASC 5 MG PO (22:18)
[2023-10-25] MEDS: SYNTHROID 88 MCG PO (05:10)
[2023-10-25 06:00] VITALS: BMI 33.7
[2023-10-25] MEDS: RASAGILINE MESYLATE 1 MG PO (07:28)
[2023-10-25] MEDS: SINEMET 25-100 0.5 TABLET PO ×3 (07:28→21:28)
[2023-10-25] MEDS: WELLBUTRIN XL (24 hour extended release) 300 MG PO (07:28)
[2023-10-25 07:51] VITALS: BP 153/89
--- NOTE | 2023-10-25 07:53 | W.PN.HOSP.TC ---
Today's Communication/Plan
-
Discharge to short-term rehab when bed available
Assessment / Plan
Assessment / Plan
#Mechanical fall
#Generalized weakness
Orthostatics negative
PT/OT recommend short-term rehab
Patient lives alone and is agreeable
Medically stable for discharge to short-term rehab when bed available
#Forehead laceration
Status post suture repair in the ER
Needs suture removal in 7-10 days
#Parkinson's disease
Appreciate neurology input, started carbidopa/levodopa 25/100 half a tablet 3 times a day
Follow-up with neurology in the office for up titration
#Hypokalemia
Repleted and resolved, magnesium normal
#Benign essential hypertension
Blood pressure stable on amlodipine 5 mg at bedtime, valsartan 80 mg at bedtime
#Anxiety/depression
Continue Wellbutrin
#Hypothyroidism
Continue levothyroxine, TSH normal
#Morbid obesity due to excess calories
Affects all aspects of care
DVT prophylaxis�subcu Lovenox
Full code
Total time spent to see the patient on the floor, examine the patient, review data and lab results, discuss treatment plan with patient, nursing staff around 50 minutes.
Physical Exam
General: Morbidly obese, no acute distress
HEENT: Normocephalic, EOMI, MMM
Laceration on forehead sutured with dressing on top
Respiratory: Clear to Auscultation bilaterally
Cardiac: Normal S1/S2, Regular Rate and Rhythm
GI: Soft, Nontender, Nondistended, Normal Bowel Sounds
Extremities: No Clubbing, Cyanosis, or Edema
Neuro: Nonfocal/Grossly Intact
Psych: Calm, Cooperative
s
Anticipated Discharge: 24 - 48 hours
Subjective/Interval History
-
Date of Service: October 25, 2023
Patient denies headache, no nausea, no vomiting. No chest pain.
Objective Data
-
Labs:
Laboratory Results
10/25/23
06:00
Sodium Pending
Potassium Pending
Chloride Pending
Carbon Dioxide Pending
BUN Pending
Creatinine Pending
Glucose Pending
Calcium Pending
Vital Signs:
Vital Signs
Temp Pulse Resp BP Pulse Ox
97.5 F 72 18 153/89 93
10/25/23 07:51 10/25/23 07:51 10/25/23 07:51 10/25/23 07:51 10/25/23 07:51
I&O
10/24/23 10/25/23 10/26/23
06:59 06:59 06:59
Intake Total 360 / 360 1080 / 1080
Output Total 400 / 400 1050 / 1050
Balance -40 / -40 30 / 30
[2023-10-25 08:07] VITALS: BP 128/83; BP 134/92; BP 148/81; PULSE 76; PULSE 78; PULSE 82
--- NOTE | 2023-10-25 09:59 | CM ---
Met with patient at bedside; initial assessment completed
Pharmacy verified: [facility], [facility], [place]
Patient reported that he lives alone in a [address] Building on the 3rd floor; elevator access; no steps to enter; bathroom has tub w/shower, grab bars, chair
Patient reported that his friend, Eligio, is able to provide support if needed; 'just about speaks to him every day'
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
SNF/Rehab/Home Health utilization history: none; Explained that PT recommends SNF @ discharge; provided list of facilities; patient agreed and gave permission to send referrals to [facility] and [facility]; [facility]
Transportation: transport to facility to be determined
Plan: discharge to SNF when medically stable and bed available
[2023-10-25 10:48] LABS: Blood Urea Nitrogen 11 mg/dl (9-20); Carbon Dioxide 24 mmol/L (22-30); Chloride 104 mmol/L (98-107); Estimated Creatinine Clearance > 125 ml/min; Glucose 131 mg/dl (70-99); Magnesium 2.1 mg/dl (1.6-2.3); Potassium 3.9 mmol/L (3.5-5.1); Sodium 136 mmol/L (135-145); eGFR > 60.00
[2023-10-25 14:52] VITALS: BP 124/74
[2023-10-25] MEDS: LOVENOX 40 MG SC (17:45)
[2023-10-25 20:21] VITALS: BP 115/72; BP 123/84; BP 134/72; PULSE 77; PULSE 84; PULSE 87
[2023-10-25] MEDS: NORVASC 5 MG PO (21:28)
[2023-10-25] MEDS: DIOVAN 80 MG PO (21:28)
[2023-10-25 23:09] VITALS: BP 111/65
[2023-10-26] MEDS: SYNTHROID 88 MCG PO (05:12)
[2023-10-26 06:00] VITALS: BMI 34.1
[2023-10-26 07:45] VITALS: BP 135/83; BP 146/93; BP 162/105; PULSE 71; PULSE 76
[2023-10-26] MEDS: WELLBUTRIN XL (24 hour extended release) 300 MG PO (07:59)
[2023-10-26] MEDS: RASAGILINE MESYLATE 1 MG PO (07:59)
[2023-10-26] MEDS: SINEMET 25-100 0.5 TABLET PO ×3 (08:00→21:38)
--- NOTE | 2023-10-26 08:04 | W.PN.HOSP.TC ---
Today's Communication/Plan
-
Discharge to short-term rehab when bed available
Assessment / Plan
Assessment / Plan
#Mechanical fall
#Generalized weakness
Orthostatics negative
PT/OT recommend short-term rehab
Patient lives alone and is agreeable
Medically stable for discharge to short-term rehab when bed available
#Forehead laceration
Status post suture repair in the ER
Needs suture removal in 7-10 days
#Parkinson's disease
Appreciate neurology input, started carbidopa/levodopa 25/100 half a tablet 3 times a day
Follow-up with neurology Dr. Mayela Gayle at [facility] in the office for up titration,
#Hypokalemia
Repleted and resolved, magnesium normal
#Benign essential hypertension
Blood pressure stable on amlodipine 5 mg at bedtime, valsartan 80 mg at bedtime
#Anxiety/depression
Continue Wellbutrin
#Hypothyroidism
Continue levothyroxine, TSH normal
#Morbid obesity due to excess calories
Affects all aspects of care
DVT prophylaxis�subcu Lovenox
Full code
Total time spent to see the patient on the floor, examine the patient, review data and lab results, discuss treatment plan with patient, nursing staff around 35 minutes.
Physical Exam
General: Morbidly obese, no acute distress
HEENT: Normocephalic, EOMI, MMM
Laceration on forehead sutured with dressing on top
Respiratory: Clear to Auscultation bilaterally
Cardiac: Normal S1/S2, Regular Rate and Rhythm
GI: Soft, Nontender, Nondistended, Normal Bowel Sounds
Extremities: No Clubbing, Cyanosis, or Edema
Neuro: Nonfocal/Grossly Intact
Psych: Calm, Cooperative
Anticipated Discharge: Within 24 hours
Subjective/Interval History
-
Date of Service: October 26, 2023
No acute events. Patient denies headache, chest pain, shortness of breath. No fever, no vomiting.
Objective Data
-
Labs:
Laboratory Results
10/26/23
06:00
Sodium Pending
Potassium Pending
Chloride Pending
Carbon Dioxide Pending
BUN Pending
Creatinine Pending
Glucose Pending
Calcium Pending
Vital Signs:
Vital Signs
Temp Pulse Resp BP Pulse Ox
98.5 F 71 18 135/83 96
10/26/23 07:45 10/26/23 07:45 10/26/23 07:45 10/26/23 07:45 10/26/23 07:45
I&O
10/25/23 10/26/23 10/27/23
06:59 06:59 06:59
Intake Total 1080 / 1080 1000 / 1000
Output Total 1050 / 1050 925 / 925
Balance 30 / 30 75 / 75
[2023-10-26 09:55] LABS: Blood Urea Nitrogen 12 mg/dl (9-20); Calcium 8.8 mg/dl (8.4-10.2); Carbon Dioxide 25 mmol/L (22-30); Chloride 106 mmol/L (98-107); Estimated Creatinine Clearance > 125 ml/min; Glucose 99 mg/dl (70-99); Sodium 136 mmol/L (135-145); eGFR > 60.00
[2023-10-26 14:20] VITALS: BP 112/78; PULSE 78; O2SAT 94
[2023-10-26 15:28] VITALS: BP 123/69
[2023-10-26] MEDS: LOVENOX SC ×2 (16:59→17:01)
[2023-10-26] MEDS: DIOVAN 80 MG PO (21:37)
[2023-10-26] MEDS: NORVASC 5 MG PO (21:38)
[2023-10-26 23:32] VITALS: BP 133/90; BP 134/90; BP 135/93; PULSE 78; PULSE 81; PULSE 83
[2023-10-27 05:17] VITALS: BMI 33.7
[2023-10-27] MEDS: SYNTHROID 88 MCG PO (05:23)
[2023-10-27 07:00] VITALS: BP 139/89
[2023-10-27] MEDS: RASAGILINE MESYLATE 1 MG PO (08:55)
[2023-10-27] MEDS: SINEMET 25-100 0.5 TABLET PO ×3 (08:55→21:19)
[2023-10-27] MEDS: WELLBUTRIN XL (24 hour extended release) 300 MG PO (08:56)
[2023-10-27 09:15] VITALS: BP 147/89; PULSE 79; O2SAT 94
--- NOTE | 2023-10-27 10:43 | CM ---
Addendum entered by ART Shin 10/27/23 10:47:
upon review, patient is obs and Medicare. Patient would need a 3 night inpatient stay to qualify for SNF.
Original Note:
Reviewed chart, thus far, [facility] has indicated that they can take patient for skilled rehab. No precert will be needed for transfer.
Will update patient.
Plan: Case management will continue to follow and assist with discharge planning. Will f/u with patient to review acceptance at .
--- NOTE | 2023-10-27 14:05 | W.PN.HOSP.TC ---
Today's Communication/Plan
-
d/c planning for rehab
Assessment / Plan
Assessment / Plan
#Mechanical fall
#Generalized weakness
Orthostatics negative
PT/OT recommend short-term rehab
Patient lives alone and is agreeable
Medically stable for discharge to short-term rehab when bed available
#Forehead laceration
Status post suture repair in the ER
Needs suture removal in 7-10 days
#Parkinson's disease
Appreciate neurology input, started carbidopa/levodopa 25/100 half a tablet 3 times a day
Follow-up with neurology Dr. Mayela Gayle at [facility] [place] in the office for up titration,
#Hypokalemia
Repleted and resolved, magnesium normal
#Benign essential hypertension
Blood pressure stable on amlodipine 5 mg at bedtime, valsartan 80 mg at bedtime
#Anxiety/depression
Continue Wellbutrin
#Hypothyroidism
Continue levothyroxine, TSH normal
#Morbid obesity due to excess calories
Affects all aspects of care
DVT prophylaxis�subcu Lovenox
Full code
Anticipated Discharge: Within 24 hours
Subjective/Interval History
-
Date of Service: October 27, 2023
Resting comfortably in chair
denies having any dizziness
No acute issues overnight
Objective Data
-
Vital Signs:
Vital Signs
Temp Pulse Resp BP Pulse Ox
98.4 F 75 18 139/89 93
10/27/23 07:00 10/27/23 07:00 10/27/23 07:00 10/27/23 07:00 10/27/23 07:00
I&O
10/26/23 10/27/23 10/28/23
06:59 06:59 06:59
Intake Total 1000 / 1000 1380 / 1380
Output Total 925 / 925 1175 / 1175
Balance 75 / 75 205 / 205
Review of Systems
-
Respiratory: Reports No Symptoms
Cardiac: Reports No Symptoms
Abdomen/GI: Reports No Symptoms
Physical Exam
-
General: No Apparent Distress and Comfortable
HEENT: Negative Oxygen
Respiratory: Clear to Auscultation
Cardiac: Regular Rhythm and S1/S2; Negative Murmur or Rub
GI: Soft, Nontender and Nondistended
Musculoskeletal: No Edema
Neuro: Awake, Alert, Oriented, No Motor Deficits and Nonfocal/Grossly Intact
Psych: Calm
[2023-10-27 15:00] VITALS: BP 142/94
[2023-10-27 16:13] VITALS: BP 134/93; PULSE 82; O2SAT 95
[2023-10-27] MEDS: LOVENOX SC (18:22)
[2023-10-27] MEDS: DIOVAN 80 MG PO (21:16)
[2023-10-27] MEDS: NORVASC 5 MG PO (21:19)
[2023-10-27 22:31] VITALS: BP 126/74
[2023-10-28 06:00] VITALS: BMI 32.3
[2023-10-28] MEDS: SYNTHROID 88 MCG PO (06:09)
[2023-10-28 07:10] VITALS: BP 131/76
[2023-10-28] MEDS: SINEMET 25-100 0.5 TABLET PO ×3 (07:12→23:17)
[2023-10-28] MEDS: WELLBUTRIN XL (24 hour extended release) 300 MG PO (07:12)
[2023-10-28] MEDS: RASAGILINE MESYLATE 1 MG PO (07:12)
--- NOTE | 2023-10-28 12:47 | W.PN.HOSP.TC ---
Today's Communication/Plan
-
continue PT/OT
discharge planning for rehab
Assessment / Plan
Assessment / Plan
#Mechanical fall
#Generalized weakness
Orthostatics negative
PT/OT recommend short-term rehab
Patient lives alone and is agreeable
Medically stable for discharge to short-term rehab when bed available
#Forehead laceration
Status post suture repair in the ER
Needs suture removal in 7-10 days
#Parkinson's disease
Appreciate neurology input, started carbidopa/levodopa 25/100 half a tablet 3 times a day
Follow-up with neurology Dr. Mayela Gayle at [facility] in the office for up titration,
#Hypokalemia
Repleted and resolved, magnesium normal
#Benign essential hypertension
Blood pressure stable on amlodipine 5 mg at bedtime, valsartan 80 mg at bedtime
#Anxiety/depression
Continue Wellbutrin
#Hypothyroidism
Continue levothyroxine, TSH normal
#Morbid obesity due to excess calories
Affects all aspects of care
DVT prophylaxis�subcu Lovenox
Full code
Anticipated Discharge: > 48 hours
Subjective/Interval History
-
Date of Service: October 28, 2023
denies having dizziness/chest pain
no other reported problems
Objective Data
-
Vital Signs:
Vital Signs
Temp Pulse Resp BP Pulse Ox
97.7 F 74 16 131/76 91
10/28/23 07:10 10/28/23 07:10 10/28/23 07:10 10/28/23 07:10 10/28/23 07:10
I&O
10/27/23 10/28/23 10/29/23
06:59 06:59 06:59
Intake Total 1380 / 1380 720 / 720
Output Total 1175 / 1175 1700 / 1700
Balance 205 / -980 / -980
Review of Systems
-
Respiratory: Reports No Symptoms
Cardiac: Reports No Symptoms
Abdomen/GI: Reports No Symptoms
Physical Exam
-
General: No Apparent Distress and Comfortable
HEENT: Negative Oxygen
Respiratory: Clear to Auscultation
Cardiac: Regular Rhythm and S1/S2; Negative Murmur or Rub
GI: Soft, Nontender and Nondistended
Musculoskeletal: No Edema
Neuro: Awake, Alert, Oriented, No Motor Deficits and Nonfocal/Grossly Intact
Psych: Calm
[2023-10-28 16:16] VITALS: BP 128/79
[2023-10-28 16:17] VITALS: BP 127/90
[2023-10-28 16:28] VITALS: BP 127/90; PULSE 89; O2SAT 96
[2023-10-28] MEDS: LOVENOX SC (19:17)
[2023-10-28 22:48] VITALS: BP 129/86
[2023-10-28] MEDS: DIOVAN 80 MG PO (23:17)
[2023-10-28] MEDS: NORVASC 5 MG PO (23:18)
[2023-10-29] MEDS: SYNTHROID 88 MCG PO (05:52)
[2023-10-29] MEDS: SINEMET 25-100 0.5 TABLET PO ×3 (07:19→21:41)
[2023-10-29] MEDS: RASAGILINE MESYLATE 1 MG PO (07:19)
[2023-10-29] MEDS: WELLBUTRIN XL (24 hour extended release) 300 MG PO (07:19)
[2023-10-29 07:30] VITALS: BP 129/92
--- NOTE | 2023-10-29 12:13 | W.PN.HOSP.TC ---
Today's Communication/Plan
-
discharge planning for rehab
Assessment / Plan
Assessment / Plan
#Mechanical fall
#Generalized weakness
Orthostatics negative
PT/OT recommend short-term rehab
Patient lives alone and is agreeable
Medically stable for discharge to short-term rehab when bed available
#Forehead laceration
Status post suture repair in the ER
Needs suture removal in 7-10 days
#Parkinson's disease
Appreciate neurology input, started carbidopa/levodopa 25/100 half a tablet 3 times a day
Follow-up with neurology Dr. Mayela Gayle at [facility] in the office for up titration,
#Hypokalemia
Repleted and resolved, magnesium normal
#Benign essential hypertension
Blood pressure stable on amlodipine 5 mg at bedtime, valsartan 80 mg at bedtime
#Anxiety/depression
Continue Wellbutrin
#Hypothyroidism
Continue levothyroxine, TSH normal
#Morbid obesity due to excess calories
Affects all aspects of care
DVT prophylaxis�subcu Lovenox
Full code
Anticipated Discharge: 24 - 48 hours
Subjective/Interval History
-
Date of Service: October 29, 2023
Denies having any problems overnight
No new issues
Objective Data
-
Vital Signs:
Vital Signs
Temp Pulse Resp BP Pulse Ox
98.1 F 78 18 129/92 92
10/29/23 07:30 10/29/23 07:30 10/29/23 07:30 10/29/23 07:30 10/29/23 07:30
I&O
10/28/23 10/29/23 10/30/23
06:59 06:59 06:59
Intake Total 720 / 720 1140 / 1140
Output Total 1700 / 1700
Balance -980 / -980 1140 / 1140
Review of Systems
-
Respiratory: Reports No Symptoms
Cardiac: Reports No Symptoms
Abdomen/GI: Reports No Symptoms
Physical Exam
-
General: No Apparent Distress and Comfortable
HEENT: Negative Oxygen
Respiratory: Clear to Auscultation
Cardiac: Regular Rhythm and S1/S2; Negative Murmur or Rub
GI: Soft, Nontender and Nondistended
Musculoskeletal: No Edema
Neuro: Awake, Alert, Oriented, No Motor Deficits and Nonfocal/Grossly Intact
Psych: Calm
[2023-10-29 15:30] VITALS: BP 118/78
[2023-10-29] MEDS: LOVENOX SC (17:42)
[2023-10-29] MEDS: DIOVAN 80 MG PO (21:38)
[2023-10-29] MEDS: NORVASC 5 MG PO (21:41)
[2023-10-29 21:42] VITALS: BP 132/83; BP 132/94; BP 145/91; PULSE 86; PULSE 92; PULSE 94
[2023-10-29 23:00] VITALS: BP 138/85
[2023-10-30 06:00] VITALS: BMI 33.3
[2023-10-30] MEDS: SYNTHROID 88 MCG PO (06:09)
[2023-10-30 07:00] VITALS: BP 152/90
--- NOTE | 2023-10-30 08:04 | W.PN.HOSP.TC ---
Today's Communication/Plan
-
d/c snf rehab
Assessment / Plan
Assessment / Plan
#Mechanical fall
#Generalized weakness
Orthostatics negative
PT/OT recommend short-term rehab
Patient lives alone and is agreeable
Medically stable for discharge to short-term rehab when bed available
#Forehead laceration
Status post suture repair in the ER
Needs suture removal in 7-10 days
#Parkinson's disease
Appreciate neurology input, started carbidopa/levodopa 25/100 half a tablet 3 times a day
Follow-up with neurology Dr. Mayela Gayle at [facility] in the office for up titration,
#Hypokalemia
Repleted and resolved, magnesium normal
#Benign essential hypertension
Blood pressure stable on amlodipine 5 mg at bedtime, valsartan 80 mg at bedtime
#Anxiety/depression
Continue Wellbutrin
#Hypothyroidism
Continue levothyroxine, TSH normal
#Morbid obesity due to excess calories
Affects all aspects of care
DVT prophylaxis�subcu Lovenox
Full code
Anticipated Discharge: Today
Subjective/Interval History
-
Date of Service: October 30, 2023
no complains in night
Objective Data
-
Labs:
Laboratory Results
10/30/23
08:03
Sodium Pending
Potassium Pending
Chloride Pending
Carbon Dioxide Pending
BUN Pending
Creatinine Pending
Glucose Pending
Calcium Pending
Vital Signs:
Vital Signs
Temp Pulse Resp BP Pulse Ox
97.9 F 76 20 152/90 94
10/30/23 07:00 10/30/23 07:00 10/30/23 07:00 10/30/23 07:00 10/30/23 07:00
I&O
10/29/23 10/30/23 10/31/23
06:59 06:59 06:59
Intake Total 1140 / 1140 780 / 780
Output Total 1150 / 1150
Balance 1140 / 1140 -370 / -370
Review of Systems
-
Respiratory: Reports No Symptoms
Cardiac: Reports No Symptoms
Abdomen/GI: Reports No Symptoms
Physical Exam
-
General: Comfortable
HEENT: Negative Oxygen
Neuro: Awake, Alert, Oriented and No Motor Deficits
Psych: Calm
[2023-10-30] MEDS: RASAGILINE MESYLATE 1 MG PO (08:18)
[2023-10-30] MEDS: SINEMET 25-100 0.5 TABLET PO ×3 (08:18→21:44)
[2023-10-30] MEDS: WELLBUTRIN XL (24 hour extended release) 300 MG PO (08:19)
[2023-10-30 11:20] LABS: Blood Urea Nitrogen 13 mg/dl (9-20); Calcium 8.9 mg/dl (8.4-10.2); Carbon Dioxide 27 mmol/L (22-30); Chloride 106 mmol/L (98-107); Estimated Creatinine Clearance 89 ml/min; Glucose 130 mg/dl (70-99); Potassium 3.9 mmol/L (3.5-5.1); Sodium 138 mmol/L (135-145); eGFR > 60.00
[2023-10-30 11:36] VITALS: BP 165/102; PULSE 94; O2SAT 95
[2023-10-30 15:00] VITALS: BP 123/70; BP 123/86; BP 130/86; BP 135/87; PULSE 75; PULSE 81; PULSE 93
--- NOTE | 2023-10-30 16:42 | CM ---
Spoke with PT, who stated that patient is functioning at baseline and has progressed extremely well in therapy. Checked OT notes. Per OT patient is at baseline. Patient verbalizing that he wants to go home. Texted RN and attending to update and
determine if patient can be cleared for discharge.
Plan: Case management will continue to follow and assist with discharge planning. Patient would like to go home.
[2023-10-30] MEDS: LOVENOX SC (17:28)
[2023-10-30] MEDS: DIOVAN 80 MG PO (21:44)
[2023-10-30] MEDS: NORVASC 5 MG PO (21:44)
[2023-10-30 22:37] VITALS: BP 150/89
[2023-10-31] MEDS: SYNTHROID 88 MCG PO (05:58)
[2023-10-31 06:00] VITALS: BMI 33.1
[2023-10-31 07:53] VITALS: BP 147/88
[2023-10-31] MEDS: WELLBUTRIN XL (24 hour extended release) 300 MG PO (09:12)
[2023-10-31] MEDS: RASAGILINE MESYLATE 1 MG PO (09:12)
[2023-10-31] MEDS: SINEMET 25-100 0.5 TABLET PO (09:12)
--- NOTE | 2023-10-31 09:42 | CM ---
CM following re: discharge planning.
Reviewed pt's chart, met with pt.
Discharge order noted. Pt is aware, expressed his agreement with discharge. IMM reviewed, placed on chart, pt has a copy. Pt stated his friend will transport him home.
PT and OT recommended home PT/OT and a walker. Pt is aware, expressed his agreement. A list of [facility] vendors provided. Pt preferred [facility]. A referral to VN made.
PT to provide a walker. MD will provide a script. RN is aware and she stated she will coordinate with MD and PT.
Please fax discharge instructions to [facility] at [phone]
D/C plan: home with [facility] and friends support. Friend to transport at discharge.
--- NOTE | 2023-10-31 10:26 | W.PN.HOSP.TC ---
Today's Communication/Plan
-
d/.c home with HH
Assessment / Plan
Assessment / Plan
#Mechanical fall
#Generalized weakness
Orthostatics negative
PT/OT recommend short-term rehab
Patient lives alone and is agreeable
Patient better and appropriate for home with home health
#Forehead laceration
Status post suture repair in the ER
Needs suture removal in 7-10 days
#Parkinson's disease
Appreciate neurology input, started carbidopa/levodopa 25/100 half a tablet 3 times a day
Follow-up with neurology Dr. Mayela Gayle at [facility] in the office for up titration,
#Hypokalemia
Repleted and resolved, magnesium normal
#Benign essential hypertension
Blood pressure stable on amlodipine 5 mg at bedtime, valsartan 80 mg at bedtime
#Anxiety/depression
Continue Wellbutrin
#Hypothyroidism
Continue levothyroxine, TSH normal
#Morbid obesity due to excess calories
Affects all aspects of care
DVT prophylaxis�subcu Lovenox
Full code
More than 30 minutes spent in discharge including
Final examination of the patient
Summarizing hospital stay
Instructions for continuing care to all relevant caregivers
Preparation of discharge records, prescriptions, and referral forms
Total time spent (in minutes): 38 mins
Anticipated Discharge: Today
Subjective/Interval History
-
Date of Service: October 31, 2023
No reported issues overnight
Objective Data
-
Vital Signs:
Vital Signs
Temp Pulse Resp BP Pulse Ox
97.6 F 75 20 147/88 93
10/31/23 07:53 10/31/23 07:53 10/31/23 07:53 10/31/23 07:53 10/31/23 07:53
I&O
10/30/23 10/31/23 11/01/23
06:59 06:59 06:59
Intake Total 780 / 780 1200 / 1200
Output Total 1150 / 1150 900 / 900
Balance -370 / -370 300 / 300
Review of Systems
-
Respiratory: Reports No Symptoms
Cardiac: Reports No Symptoms
Abdomen/GI: Reports No Symptoms
Physical Exam
-
General: Comfortable
HEENT: Negative Oxygen
Neuro: Awake, Alert, Oriented and No Motor Deficits
Psych: Calm
[2023-10-31 11:32] VITALS: BP 136/83
--- NOTE | 2023-10-31 18:04 | W.DCSUMMARY ---
Discharge Summary
Discharge Data
Date of Admission: 10/28/23
Date of Discharge: 10/31/23
-
Pending Results: No
Hospital Course
Discharging Physician : Dr Olivier Colby
Disposition : Home with home care
Primary care physician : Dr Андрей Manriquez
Principal Discharge diagnosis :
Mechanical fall/generalized weakness
Forehead laceration
Parkinson's disease
Hypokalemia
Chronic Discharge diagnosis :
Essential hypertension
Anxiety/depression
Hypothyroidism
Morbid obesity
Hospital Course :
Patient is a 73-year-old male with above-mentioned past medical history came to ER with new onset of ambulatory dysfunction and mechanical fall at home. Patient have history of Parkinson's disease and lives by himself, able to get around without
assistance. Patient had a trip and fall causing head injury and laceration which was sutured in ER. CT head/CT C-spine was negative for any bleeding. Neurology was involved in care and patient based on symptom was started on Sinemet therapy.
Patient was checked for orthostatic vitals and was negative. Initially patient was planned to be discharged to rehab although patient condition improved and patient was discharged home with home physical therapy.
Important imaging findings :
None
Procedure findings :
None
Discharge Plan
-
Patient Disposition: Home with Home Care
Discharge Diagnosis/Procedures: Ambulatory dysfunction, mechanical fall, forehead laceration, scalp hematoma, Parkinson's disease
Condition: Good
Diet: Low Fat and Low Cholesterol
Activity: As tolerated
Driving Restrictions: As prior to admission
Activity Restrictions/Additional Instructions:
Please have the sutures on your forehead removed on 10/31/23. This can be done at the nursing facility.
You were started on Sinemet for Parkinson's.
Please follow-up with your usual neurologist Dr. Mayela Gayle in the office in 2-3 weeks for up titration.
Please follow-up with your primary care doctor in 1 week.
Wound Care Instructions Head laceration- Gently clean with normal saline and pat dry. Apply adaptic and dry dressing. Change every other day and as needed if loose or soiled.
Referrals:
Андрей Manriquez DO [Family Provider] - in one week
Prescriptions:
New
carbidopa-levodopa 25-100 mg Tablet
0.5 tab PO TID 30 Days Qty: 45 2RF
Continued
levothyroxine 88 mcg Tablet
88 mcg PO DAILY Qty: 0
valsartan 80 mg tablet
80 mg PO HS
amlodipine 5 mg tablet
5 mg PO HS
hydrochlorothiazide 25 mg tablet
25 mg PO DAILY
bupropion HCl 300 mg tablet extended release 24 hr
300 mg PO DAILY
rasagiline 1 mg tablet
1 mg PO DAILY
Discharge Orders:
Discharge Patient (As Directed); Ordered 10/31/23
Ordered By: Olivier Colby
Discharge Date and Time
Discharge Date/Time: 10/31/23 12:15
Print Language: KAZAKH
== END 2023-10-31 12:15 | disposition home health service (06) | DRG 57 ==
LOC: 3 WEST ACU 12:46
PROVIDERS: Family Medicine; Nurse Practitioner; Physician Assistant Medical; ADMITTING PHYSICIAN Internal Medicine; ATTENDING PHYSICIAN Hospitalist; CONSULT PHYSICIAN Student in an Organized Health Care Education/Training Program; EMERGENCY PHYSICIAN Emergency Medicine; FAMILY PHYSICIAN Family Medicine
DX: G20.A1 Parkinson's disease without dyskinesia, without mention of fluctuations (principal); E87.6 Hypokalemia; I10 Essential (primary) hypertension; F32.A Depression, unspecified; F41.9 Anxiety disorder, unspecified; E03.9 Hypothyroidism, unspecified; E66.01 Morbid (severe) obesity due to excess calories; Z68.33 Body mass index [BMI] 33.0-33.9, adult
CPT/HCPCS: 12013; 70450; 71101; 72125; 80048; 80053; 81003; 81015; 83735; 84443; 85025; 85027; 90471; 90715; 97116; 97163; 97166; 97530; 97535; 99285

== ENCOUNTER 2024-04-14 07:16 | Outpatient (RCR) | payer SELFPAY | END 2024-04-14 23:59 | disposition home or self-care (01) | LOC: ROT 07:16 | PROVIDERS: ATTENDING PHYSICIAN Family Medicine | DX: G23.1 Progressive supranuclear ophthalmoplegia [Steele-Richardson-Olszewski] (principal); Z02.4 Encounter for examination for driving license ==

== ENCOUNTER 2024-05-17 10:51 | Emergency (ER) | payer MEDICARE, SELFPAY ==
[2024-05-17 10:58] VITALS: BP 124/87
--- NOTE | 2024-05-17 11:09 | ED.GENMED ---
History of Present Illness
General
Chief Complaint: Wound Check/Suture Removal
Source: patient
Exam Limitations: none
Time Seen by Provider: 05/17/24 11:07
History of Present Illness
History of Present Illness:
73-year-old male presents for suture removal left side of face. He had Mohs procedure done 1 week ago but was unable to get to the doctor to get his sutures removed. He was told to have the sutures removed in 1 week. No complaints otherwise
Phy Exam
Physical Exam
Physical Exam:
General: Well-appearing male no acute distress
Skin: Intact nylon sutures left side of. No surrounding erythema or swelling
Course
Vital Signs
Initial and Last Documented VS:
Initial Vital Signs
Temp Pulse Resp BP Pulse Ox
97.8 F 87 19 124/87 94
05/17/24 10:58 05/17/24 10:58 05/17/24 10:58 05/17/24 10:58 05/17/24 10:58
Last Documented Vital Signs
Temp Pulse Resp BP Pulse Ox
97.8 F 87 19 124/87 94
05/17/24 10:58 05/17/24 10:58 05/17/24 10:58 05/17/24 10:58 05/17/24 10:58
MDM/Problems Addressed
Differential Diagnosis Includes:
No evidence of infection. 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 The sutures were removed here without incident. Stable for discharge
*Critical Care Note
Total Time (30-74mins, 75-104mins- exclusive of procedures): Not Applicable
ED Attending Note
-
Portions of this chart may have been created with voice recognition software.� Occasional wrong word or��sound alike� substitutions may have occurred due to the inherent limitations of voice recognition software.
Discharge Plan
Departure
Patient Disposition: Home (Routine Discharge)
Date of Disposition: 05/17/24
Time of Disposition: 11:20
Patient with high blood pressure during this ER visit?: No
Discharge Problem:
Visit for suture removal
Instructions: Wound Care (DC)
Prescriptions:
No Action
levothyroxine 88 mcg Tablet
88 mcg PO DAILY Qty: 0
valsartan 80 mg tablet
80 mg PO HS
amlodipine 5 mg tablet
5 mg PO HS
hydrochlorothiazide 25 mg tablet
25 mg PO DAILY
bupropion HCl 300 mg tablet extended release 24 hr
300 mg PO DAILY
rasagiline 1 mg tablet
1 mg PO DAILY
carbidopa-levodopa 25-100 mg Tablet
0.5 tab PO TID 30 Days Qty: 45 2RF
Activity Restrictions/Additional Instructions:
Return here if needed
Interventions
Interventions:
*Risk Screen - Suicide Last Done: 05/17/24 10:59
*Neglect/Abuse Screening Last Done: 05/17/24 10:59
Discharge Date and Time
Print Language: BELARUSIAN
== END 2024-05-17 11:37 | disposition home or self-care (01) ==
LOC: EMR 10:51
PROVIDERS: EMERGENCY PHYSICIAN Student in an Organized Health Care Education/Training Program; FAMILY PHYSICIAN Family Medicine
DX: Z48.02 Encounter for removal of sutures (principal); Z98.890 Other specified postprocedural states
CPT/HCPCS: 99281

== ENCOUNTER 2024-06-28 16:14 | Emergency (ER) | payer MEDICARE, SELFPAY ==
[2024-06-28 16:18] VITALS: BP 147/95
[2024-06-28 17:37] VITALS: BMI 34.0
--- NOTE | 2024-06-28 17:45 | EDRN ---
Received patient from the waiting room via wheelchair. Patient s/p fall into a plant planter. Patient stated that he lost his balance and fell. Denies hitting his head. Patient with laceration to lateral left thigh. Patient stated that he has had
multiple falls recently. Patient stated that he lives alone and does not really have any family in the area.
[2024-06-28 18:00] VITALS: BP 136/92
[2024-06-28 19:18] VITALS: BP 135/96
[2024-06-28 19:26] LABS: % Basophils 0.6 % (0-2); % Immature Granulocytes 1.4 % (0-0.5); % Lymphocytes 13.5 % (20.5-51.1); % Monocytes 10.1 % (1.7-9.3); % Neutrophils 74.4 % (42.2-75.2); Absolute Basophils 0.1 10^3/uL (0-0.2); Absolute Immature Granulocytes 0.1 10^3/uL (0-0.05); Absolute Lymphocytes 1.3 10^3/uL (1.2-3.4); Mean Corp Hgb Conc. 32.7 g/dL (33.0-37.0); Mean Corpuscular Hgb 30.7 pg (27.0-31.0); Mean Platelet Volume 10.5 fL (7.4-10.4); Nucleated Red Blood Cells % 0 % (-); Platelet Count 224 10^3/uL (130-400); Red Blood Cell Count 5.53 10^6/uL (4.70-6.10); Red Cell Dist. Width 13.2 % (11.5-14.5); White Blood Cell Count 9.4 10^3/uL (4.8-10.8)
[2024-06-28 19:40] LABS: ALT (SGPT) 27 U/L (0-50); AST (SGOT) 25 U/L (17-59); Albumin 4.3 g/dl (3.5-5.0); Alkaline Phosphatase 93 U/L (38-126); Blood Urea Nitrogen 16 mg/dl (9-20); Calcium 9.1 mg/dl (8.4-10.2); Carbon Dioxide 28 mmol/L (22-30); Chloride 102 mmol/L (98-107); Estimated Creatinine Clearance 88 ml/min; Glucose 98 mg/dl (70-99); Potassium 4.3 mmol/L (3.5-5.1); Sodium 140 mmol/L (135-145); Total Bilirubin 0.5 mg/dl (0.2-1.3); Total Protein 7.4 g/dl (6.3-8.2); eGFR > 60.00
--- NOTE | 2024-06-28 20:00 | ED.GENMED ---
Addendum entered and electronically signed by EMERSON Mora 07/05/24 18:37:
Laceration closed with 4.0, 8cm in length. Sutured 9. Lidocaine with 1% epi used.
Original Note:
History of Present Illness
General
Chief Complaint: Fall
Source: patient
Exam Limitations: none
Time Seen by Provider: 06/28/24 19:19
History of Present Illness
History of Present Illness:
This is a 74 year old male that comes in by ambulance with c/o laceration to the left thigh. States that he fell last night and cut his thigh. States that this was around 2-3am. States that he did not hit his head or have any LOC. Patient is very
lethargic at this time. States that he hit a barrel. Patient doesn't know when last Tetanus shot was. Denies any fever, chills, chest pain, SOB, abd pain, nausea, vomiting, diarrhea, headache, dizziness, urinary burning.
Past History
Past History
ED Past Medical History: Cancer (Skin cancer, Prostate Ca with radiation), HTN and Other (Neuropathy, Parkinson's)
ED Past Surgical History: Other (Umbilical hernia, Mohs right upper chest)
Social History
Tobacco: Former smoker
Alcohol: Occasional
Personal: Single
Living: alone
Review of Systems
Review of Systems
All Other Systems: ROS reviewed and negative except as documented in HPI and ROS
Constitutional: Reports no symptoms; Denies fever or chills
EENT: Reports no symptoms
Respiratory: Reports no symptoms; Denies cough or trouble breathing
Cardiac: Reports no symptoms; Denies chest pain
ABD/GI: Reports no symptoms; Denies abdominal pain, nausea, vomiting or diarrhea
: Reports no symptoms; Denies dysuria, frequency or urgency
Musculoskeletal: Reports no symptoms
Skin: Reports other (Laceration left lateral thigh)
Neurological: Denies dizzy or headache
Psychiatric: Reports no symptoms
Phy Exam
General Physical Exam
General Presentation: no apparent distress
General age: appears older than age
General Skin: warm and dry
General Habitus: debilitated and elderly
General Mental: alert (But lethargic and falls back to sleep easily)
General Hydration: dry mucous membranes
ENT Exam
ENT Exam: TM's normal, pharynx normal and neck supple
Eye Exam
Eye Exam: EOMI
Cardiovascular Exam
Cardiovascular Exam: regular rate/rhythm, no edema and normal peripheral pulses
Pulmonary Exam
Pulmonary Exam: lungs clear, no respiratory distress, no rales, chest non tender, no crackles, no rhonchi, no wheezing and no cough
Gastrointestinal Exam
Gastrointestinal Exam: normal bowel sounds, non tender, soft, no organomegaly, no pulsatile mass and non distended
Musculoskeletal Exam
Musculoskeletal Exam: full ROM and no edema
Skin Exam
Skin Exam: normal color, warm/dry, no rash, no petechia and laceration (left lateral thigh. )
Psychiatric Exam
Psychiatric Exam: normal mood/affect
Course
Orders/Labs/Results
Orders:
Orders
06/28/24 19:17
CMP [Comprehensive Metabolic Panel] Urgent
Complete Blood Count/With Diff Urgent
06/28/24 20:00
CT Head W/o Iv Contrast Urgent
Comment:
Reason For Exam: fall
Urinalysis Reflex To Culture Urgent
Cephalexin Monohydrate [Keflex] 500 mg PO NOW STA
Tetanus/Diphth/Acelpertussis [Adacel] 0.5 ml IM .ONCE ONE
06/28/24 20:49
COVID-19 Antigen Urgent
Source: Nasal Swab
Abnormal Lab Results
06/28/24
19:17
MCHC 32.7 L g/dL
(33.0-37.0)
MPV 10.5 H fL
(7.4-10.4)
Abs Immat Gran (auto) 0.1 H 10^3/uL
(0-0.05)
Absolute Neuts (auto) 7.0 H 10^3/uL
(1.4-6.5)
Absolute Monos (auto) 1.0 H 10^3/uL
(0.1-0.6)
Immature Gran % 1.4 H %
(0-0.5)
Lymphocytes % 13.5 L %
(20.5-51.1)
Monocytes % 10.1 H %
(1.7-9.3)
06/28/24 19:17
06/28/24 19:17
labs unremarkable. COVID negative.
Vital Signs
Initial and Last Documented VS:
Initial Vital Signs
Temp Pulse Resp BP Pulse Ox
98.9 F 96 20 147/95 91
06/28/24 16:18 06/28/24 16:18 06/28/24 16:18 06/28/24 16:18 06/28/24 16:18
Last Documented Vital Signs
Temp Pulse Resp BP Pulse Ox
98.6 F 90 20 147/94 97
06/28/24 18:00 06/28/24 21:14 06/28/24 21:14 06/28/24 21:14 06/28/24 21:14
MDM/Problems Addressed
Differential Diagnosis Includes:
Laceration, UTi
MDM/Problems Addressed:
This is a 74 year old male that comes in with c/o laceration to the left thigh. States that he hat a barrel and cut his leg yesterday around 2-3am. States that he thought he didn't need suture but then he thought he did.
Patient was very sleepy when seen. He denied hitting his head. However, will get labs, CT head. Would is large and adipose fat is hanging out. Explained that he would be started on an antibiotic and suture laceration to help hold this together.
Back into see patient. Patient much more awake and was able to get OOB and walk with a walker without any difficulty. Will place on antibiotics. Patient to see the family doctor in 2 days for a wound check and in 10-14 days for suture to come out.
Patient to return with any redness, fever, or any other concerns.
*Radiology
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 There is mild diffuse cortical and cerebellar atrophy. )
*Pulse Oximetry
Patient hypoxic: no
*EKG
Interpreted by ED Provider?: NA
Rate: EKG- N/A
*Casting Molder Interpretation
Rate: Casting Molder- N/A
*Critical Care Note
Total Time (30-74mins, 75-104mins- exclusive of procedures): Not Applicable
ED Attending Note
-
Portions of this chart may have been created with voice recognition software.� Occasional wrong word or��sound alike� substitutions may have occurred due to the inherent limitations of voice recognition software.
Discharge Plan
Departure
Patient Disposition: Home (Routine Discharge)
Date of Disposition: 06/28/24
Time of Disposition: 22:36
Patient with high blood pressure during this ER visit?: Yes
Condition: Good
Covid-19: Negative COVID-19
Discharge Problem:
Laceration of left thigh
Instructions: Laceration Repair With Stitches (DC), Preventing falls in adults, BLOOD PRESSURE
Prescriptions:
New
cephalexin 500 mg capsule
500 mg PO TID 10 Days Qty: 30 0RF
No Action
levothyroxine 88 mcg Tablet
88 mcg PO HS Qty: 0
valsartan 80 mg tablet
80 mg PO DAILY
amlodipine 5 mg tablet
5 mg PO DAILY
bupropion HCl 300 mg tablet extended release 24 hr
300 mg PO HS
rasagiline 1 mg tablet
1 mg PO HS
carbidopa-levodopa 25-100 mg tablet
1 tab PO TID
Referrals:
Андрей Manriquez, [Family Provider] - Follow up in 2-3 days
Activity Restrictions/Additional Instructions:
As discussed, your blood work is normal. Your CT of the head is negative for any acute process. You are negative for COVID. You have had the left thigh laceration repaired and you have been started on antibiotics. A prescription for an antibiotic
has been sent to your pharmacy. Please take as directed. FOLLOW UP WITH THE FAMILY DOCTOR IN 2 DAYS FOR A WOUND CHECK AND IN 10-14 DAYS FOR SUTURE TO BE REMOVED. PLEASE KEEP THE LACERATION DRY FOR THE NEXT 24 HOURS AND THEY YOU MAY GENTLY WASH
THE AREA WITH WARM SOAPY WATER. IF YOU HAVE ANY REDNESS OR DRAINAGE OR YOU HAVE ANY OTHER CONCERNS PLEASE RETURN TO THE EMEGENCY ROOM.
Interventions
Interventions:
*Risk Screen - Suicide Last Done: 06/28/24 17:37
*General Assessment Last Done: 06/28/24 17:37
*Neglect/Abuse Screening Last Done: 06/28/24 17:37
ED- Fall Risk Assessment Last Done: 06/28/24 17:37
*ED COVID-19 Vaccine History Last Done: 06/28/24 17:37
ED-Musculoskeletal Assessment Last Done: 06/28/24 17:37
ED- Neurological Assessment Last Done: 06/28/24 17:37
ED-Skin Assessment Last Done: 06/28/24 17:37
Discharge Date and Time
Print Language: FRISIAN
[2024-06-28] MEDS: KEFLEX 500 MG PO (20:08)
[2024-06-28] MEDS: ADACEL 0.5 ML IM (20:15)
[2024-06-28 21:09] LABS: COVID-19 Antigen Negative (Negative)
[2024-06-28 21:14] VITALS: BP 147/94
== END 2024-06-28 23:00 | disposition home or self-care (01) ==
LOC: EMR 16:14
PROVIDERS: Clinical Nurse Specialist Family Health; Student in an Organized Health Care Education/Training Program; EMERGENCY PHYSICIAN Emergency Medicine; FAMILY PHYSICIAN Family Medicine
DX: S71.112A Laceration without foreign body, left thigh, initial encounter (principal); R53.83 Other fatigue; W19.XXXA Unspecified fall, initial encounter; Z23 Encounter for immunization; Z11.52 Encounter for screening for COVID-19; G20.A1 Parkinson's disease without dyskinesia, without mention of fluctuations; I10 Essential (primary) hypertension; G62.9 Polyneuropathy, unspecified; Z85.828 Personal history of other malignant neoplasm of skin; Z85.46 Personal history of malignant neoplasm of prostate; Z87.891 Personal history of nicotine dependence; Z91.048 Other nonmedicinal substance allergy status
CPT/HCPCS: 99284; 90471; 12004; 70450; 80053; 85025; 87811; 90715

== ENCOUNTER 2024-07-20 15:35 | Emergency (ER) | payer MEDICARE, SELFPAY ==
[2024-07-20 16:05] VITALS: BP 160/98
[2024-07-20 16:33] LABS: % Basophils 0.8 % (0-2); % Eosinophils 0.1 % (0-6); % Immature Granulocytes 1.1 % (0-0.5); % Lymphocytes 16.2 % (20.5-51.1); % Monocytes 12.5 % (1.7-9.3); % Neutrophils 69.3 % (42.2-75.2); Absolute Basophils 0.1 10^3/uL (0-0.2); Absolute Immature Granulocytes 0.1 10^3/uL (0-0.05); Absolute Lymphocytes 1.4 10^3/uL (1.2-3.4); Absolute Monocytes 1.1 10^3/uL (0.1-0.6); Absolute Neutrophils 6.2 10^3/uL (1.4-6.5); Hematocrit 49.3 % (39.0-52.0); Hemoglobin 16.6 g/dL (13.0-18.0); Mean Corp Hgb Conc. 33.7 g/dL (33.0-37.0); Mean Corpuscular Hgb 30.4 pg (27.0-31.0); Mean Corpuscular Volume 90.3 fL (80.0-94.0); Mean Platelet Volume 10.1 fL (7.4-10.4); Nucleated Red Blood Cells % 0 % (-); Platelet Count 244 10^3/uL (130-400); Red Blood Cell Count 5.46 10^6/uL (4.70-6.10); Red Cell Dist. Width 13.2 % (11.5-14.5); White Blood Cell Count 8.9 10^3/uL (4.8-10.8)
[2024-07-20 16:44] LABS: INR 1.17; PT 15.2 Sec (11.4-14.6)
[2024-07-20 16:45] LABS: ALT (SGPT) 23 U/L (0-50); APTT 33.3 Sec (23.4-35.0); AST (SGOT) 25 U/L (17-59); Albumin 4.5 g/dl (3.5-5.0); Alkaline Phosphatase 115 U/L (38-126); Blood Urea Nitrogen 18 mg/dl (9-20); Carbon Dioxide 23 mmol/L (22-30); Chloride 103 mmol/L (98-107); Glucose 99 mg/dl (70-99); Potassium 4.2 mmol/L (3.5-5.1); Sodium 138 mmol/L (135-145); Total Bilirubin 0.5 mg/dl (0.2-1.3); Total Protein 7.7 g/dl (6.3-8.2); eGFR > 60.00
[2024-07-20 16:48] LABS: COVID-19 Antigen Negative (Negative)
[2024-07-20 16:56] LABS: Troponin I < 0.012 ng/ml
[2024-07-20 17:22] VITALS: BP 158/95
[2024-07-20 17:38] VITALS: BMI 32.8
[2024-07-20 18:00] VITALS: BP 137/91
--- NOTE | 2024-07-20 18:01 | ED.GENMED ---
History of Present Illness
<EMERSON Mora - Last Filed: 07/20/24 19:59>
General
Chief Complaint: Breathing Problem
Source: patient
Exam Limitations: none
Time Seen by Provider: 07/20/24 17:50
History of Present Illness
History of Present Illness:
This is a 74 year old male that comes in by ambulance with c/o SOB. States that the VN was there today and she called the PCP. Patient states that he was SOB today with speech therapy. States that this just started today. Denies fever, chills, chest
pain, SOB, abd pain, nausea, vomiting, diarrhea, headache, dizziness, urinary burning.
Past History
<EMERSON Mora - Last Filed: 07/20/24 19:59>
Past History
ED Past Medical History: Cancer (Skin cancer, Prostate Ca with radiation), HTN, Hypothyroidism, Psychiatric (Depression) and Other (Neuropathy, Parkinson's)
ED Past Surgical History: Orthopedic (Left hip replacement) and Other (Umbilical hernia, Mohs right upper chest)
Social History
Tobacco: Former smoker
Alcohol: Occasional
Personal: Single
Living: alone
Review of Systems
<EMERSON Mora - Last Filed: 07/20/24 19:59>
Review of Systems
All Other Systems: ROS reviewed and negative except as documented in HPI and ROS
Constitutional: Reports no symptoms; Denies fever or chills
EENT: Reports no symptoms
Respiratory: Reports cough and trouble breathing
Cardiac: Reports no symptoms; Denies chest pain
ABD/GI: Reports no symptoms; Denies abdominal pain, nausea, vomiting or diarrhea
: Reports no symptoms; Denies dysuria, frequency or urgency
Musculoskeletal: Reports no symptoms
Skin: Reports no symptoms
Neurological: Reports no symptoms; Denies dizzy or headache
Psychiatric: Reports no symptoms
Phy Exam
<EMERSON Mora - Last Filed: 07/20/24 19:59>
General Physical Exam
General Presentation: no apparent distress
General age: appears stated age
General Skin: warm and dry
General Habitus: elderly
General Mental: alert
General Hydration: appears well hydrated
ENT Exam
ENT Exam: TM's normal, pharynx normal and neck supple
Eye Exam
Eye Exam: EOMI
Cardiovascular Exam
Cardiovascular Exam: regular rate/rhythm, no edema and normal peripheral pulses
Pulmonary Exam
Pulmonary Exam: no respiratory distress, no rales, chest non tender, no crackles, no rhonchi, no wheezing, no cough and decreased breath sounds (Right lower lobe)
Gastrointestinal Exam
Gastrointestinal Exam: normal bowel sounds, non tender, soft, no organomegaly, no pulsatile mass and non distended
Musculoskeletal Exam
Musculoskeletal Exam: full ROM and no edema
Skin Exam
Skin Exam: normal color, warm/dry, no rash and no petechia
Psychiatric Exam
Psychiatric Exam: normal mood/affect
Scores
<EMERSON Mora - Last Filed: 07/20/24 19:59>
Heart Failure Risk
Heart Failure Risk Score: Not Applicable
Course
<EMERSON Mora - Last Filed: 07/20/24 19:59>
Orders/Labs/Results
Orders:
Orders
07/20/24 16:09
ECG [Electrocardiogram (*1)] Urgent
Reason for Study: Shortness of Breath
07/20/24 16:10
EKG- Treatment ONCE
07/20/24 16:17
COVID-19 Antigen Urgent
Source: Nasal Swab
Complete Blood Count/With Diff Urgent
Comprehensive Metabolic Panel Urgent
PT/INR [Prothrombin Time] Urgent
PTT Urgent
Influenza A+B Rapid Molecular Urgent
JUAN Source: Nasal Swab
Specimen Description:
07/20/24 16:19
Troponin I Urgent
07/20/24 18:00
CR Chest - 2 Views Urgent
Comment:
Reason For Exam: SOB
Abnormal Lab Results
07/20/24
16:17
Abs Immat Gran (auto) 0.1 H 10^3/uL
(0-0.05)
Absolute Monos (auto) 1.1 H 10^3/uL
(0.1-0.6)
Immature Gran % 1.1 H %
(0-0.5)
Lymphocytes % 16.2 L %
(20.5-51.1)
Monocytes % 12.5 H %
(1.7-9.3)
PT 15.2 H Sec
(11.4-14.6)
07/20/24 16:17
07/20/24 16:17
Labs unremarkable. PT 15.2 with INR 1.17, PTT 33.3, Troponin <0.012, COVID and Influenza Negative.
Vital Signs
Initial and Last Documented VS:
Initial Vital Signs
Temp Pulse Resp BP Pulse Ox
36.8 C 91 18 160/98 94
07/20/24 16:05 07/20/24 16:05 07/20/24 16:05 07/20/24 16:05 07/20/24 16:05
Last Documented Vital Signs
Temp Pulse Resp BP Pulse Ox
36.8 C 83 30 137/91 94
07/20/24 16:05 07/20/24 20:00 07/20/24 20:00 07/20/24 18:00 07/20/24 19:30
<Mayco Ewing MD - Last Filed: 07/20/24 22:42>
Orders/Labs/Results
Orders:
Orders
07/20/24 16:09
ECG [Electrocardiogram (*1)] Urgent
Reason for Study: Shortness of Breath
07/20/24 16:10
EKG- Treatment ONCE
07/20/24 16:17
COVID-19 Antigen Urgent
Source: Nasal Swab
Complete Blood Count/With Diff Urgent
Comprehensive Metabolic Panel Urgent
PT/INR [Prothrombin Time] Urgent
PTT Urgent
Influenza A+B Rapid Molecular Urgent
JUAN Source: Nasal Swab
Specimen Description:
07/20/24 16:19
Troponin I Urgent
07/20/24 18:00
CR Chest - 2 Views Urgent
Comment:
Reason For Exam: SOB
Abnormal Lab Results
07/20/24
16:17
Abs Immat Gran (auto) 0.1 H 10^3/uL
(0-0.05)
Absolute Monos (auto) 1.1 H 10^3/uL
(0.1-0.6)
Immature Gran % 1.1 H %
(0-0.5)
Lymphocytes % 16.2 L %
(20.5-51.1)
Monocytes % 12.5 H %
(1.7-9.3)
PT 15.2 H Sec
(11.4-14.6)
07/20/24 16:17
07/20/24 16:17
Vital Signs
Initial and Last Documented VS:
Initial Vital Signs
Temp Pulse Resp BP Pulse Ox
36.8 C 91 18 160/98 94
07/20/24 16:05 07/20/24 16:05 07/20/24 16:05 07/20/24 16:05 07/20/24 16:05
Last Documented Vital Signs
Temp Pulse Resp BP Pulse Ox
36.8 C 83 30 137/91 94
07/20/24 16:05 07/20/24 20:00 07/20/24 20:00 07/20/24 18:00 07/20/24 19:30
<EMERSON Mora - Last Filed: 07/20/24 19:59>
MDM/Problems Addressed
Differential Diagnosis Includes:
PNA, Pleural effusion,
MDM/Problems Addressed:
This is a 74 year old male that comes in with c/o SOB. States that the VN was there today and she called the PCP as he was SOB with speech therapy.
Will check labs, Chest-x-ray. Pulse ox 93% on room air
Got patient up and patient was able to walk around the ER pod 2 with a pulse ox of 92% on room air. Dr. Ewing went back into see patient. He is in agreement that the patient can go home. Patient states that he will call for a ride. Patient states
that he is ready to go home.
Chronic conditions affecting care:
Parkinson's,
Acute Exacerbation and/or Progression of Chronic Illness:
NA
<EMERSON Mora - Last Filed: 07/20/24 19:59>
*Radiology
Radiology exam reviewed: preliminary read by ED provider (Chest- Negative for active disease)
*Pulse Oximetry
Patient hypoxic: no
*EKG
Interpreted by ED Provider?: Yes
Heart Rate: 90
Rate: normal
Rhythm: sinus
[place]: left axis deviation
Interval: normal interval
QRS Pattern: right bundle branch block
Ischemia: no ischemia
*Sample Clerk Interpretation
Rate: normal
Heart Rate: 89
Rhythm: sinus
*Critical Care Note
Total Time (30-74mins, 75-104mins- exclusive of procedures): Not Applicable
ED Attending Note
<EMERSON Mora - Last Filed: 07/20/24 19:59>
-
Portions of this chart may have been created with voice recognition software.� Occasional wrong word or��sound alike� substitutions may have occurred due to the inherent limitations of voice recognition software.
<Mayco Ewing MD - Last Filed: 07/20/24 22:42>
ED Attending Note
Patient seen and examined by attending physician: Yes
ED Attending Note:
I have seen and evaluated the patient with a excu-hf-odyl encounter. I have spoken to the advance practicer provider and involved in the medical history, the physical exam, medical decision making.
Evaluation and management service: agree unless noted differently below.
Results interpretation: agree unless noted differently below.
Focused HPI: 74-year-old male with a history of Parkinson's disease and hypertension, DANELLE on CPAP presents to the emergency room via EMS apparently speech therapist called to have patient evaluated after discussion with his PCP. Patient says that
he was having trouble with his CPAP last night was not working properly or he was not wearing it properly but he says because of this he was feeling short of breath last night while he was lying down. He apparently had a visit with speech therapy
today and they felt his breathing was labored and so he came to the emergency room to be evaluated. He says he does not feel short of breath. He says he has not been coughing. He has not had any fever or chills. He does not feel his legs are
swollen. He says he feels fine and wishes to go home.
Physical exam: Awake alert no distress. Mild hypertension and mild tachypnea but normal work of breathing. He is not hypoxic. Breath sounds somewhat diminished at the lung bases. No marked edema in the legs.
Medical Decision Makin-year-old male presents for evaluation of shortness of breath. He says that speech therapist called because they were concerned about his breathing he says that he feels fine and does not wish to stay in the hospital. We
did send labs including a CBC and a CMP which were unremarkable. Troponin undetectable. EKG shows sinus rhythm with bifascicular block. Chest x-ray shows trace pleural effusions but no clear acute pathology�no pneumonia or edema noted. He is
negative for COVID and flu. I long discussion with patient I offered even recommended admission given his mild tachypnea but he feels very strongly does not wish state hospital. We did ambulate him with a walker and he did quite well. Discharged
using shared decision making he will follow-up with his primary doctor.
Discharge Plan
Departure
Patient Disposition: Home (Routine Discharge)
Date of Disposition: 07/20/24
Time of Disposition: 19:55
Patient with high blood pressure during this ER visit?: Yes
Condition: Good
Covid-19: Negative COVID-19
Discharge Problem:
SOB (shortness of breath)
Instructions: Shortness of Breath (Dyspnea) (DC), BLOOD PRESSURE
Prescriptions:
No Action
levothyroxine 88 mcg Tablet
88 mcg PO HS Qty: 0
valsartan 80 mg tablet
80 mg PO DAILY
amlodipine 5 mg tablet
5 mg PO DAILY
bupropion HCl 300 mg tablet extended release 24 hr
300 mg PO HS
rasagiline 1 mg tablet
1 mg PO HS
carbidopa-levodopa 25-100 mg tablet
1 tab PO TID
cephalexin 500 mg capsule
500 mg PO TID 10 Days Qty: 30 0RF
Referrals:
Андрей Manriquez, [Family Provider] - Follow up in 2-3 days
Activity Restrictions/Additional Instructions:
As discussed, your blood work is normal. your Troponin is normal and you are negative for COVID and Influenza. Your chest x-ray is normal. Please follow up with the family doctor for recheck. IF YOU HAVE INCREASED SHORTNESS OF BREATH, CHEST PAIN,
OR YOU HAVE ANY OTHER CONCERNS PLEASE RETURN TO THE EMERGENCY ROOM.
Interventions
Interventions:
*Risk Screen - Suicide Last Done: 07/20/24 16:08
*General Assessment Last Done: 07/20/24 17:35
*Neglect/Abuse Screening Last Done: 07/20/24 17:35
*ED COVID-19 Vaccine History Last Done: 07/20/24 17:35
*Nursing Disposition Last Done: 07/20/24 20:30
ED- Cardiac Assessment Last Done: 07/20/24 17:35
ED- Pulmonary Assessment Last Done: 07/20/24 17:35
Discharge Date and Time
Discharge Date/Time: 07/20/24 20:45
Print Language: ZAMBIAN
== END 2024-07-20 20:45 | disposition home or self-care (01) ==
LOC: EMR 15:35
PROVIDERS: Emergency Medicine; EMERGENCY PHYSICIAN Emergency Medicine; FAMILY PHYSICIAN Family Medicine
DX: R06.02 Shortness of breath (principal); I10 Essential (primary) hypertension; Z87.891 Personal history of nicotine dependence; Z11.52 Encounter for screening for COVID-19
CPT/HCPCS: 99285; 71046; 80053; 84484; 85025; 85610; 85730; 87502; 87811; 93005

== ENCOUNTER 2024-08-25 17:42 | Observation (INO) | payer MEDICARE, SELFPAY ==
[2024-08-25 11:59] VITALS: BP 112/77
[2024-08-25 12:15] LABS: % Basophils 0.6 % (0-2); % Immature Granulocytes 1.4 % (0-0.5); % Monocytes 11.8 % (1.7-9.3); % Neutrophils 69.2 % (42.2-75.2); Absolute Basophils 0.1 10^3/uL (0-0.2); Absolute Immature Granulocytes 0.1 10^3/uL (0-0.05); Absolute Lymphocytes 1.7 10^3/uL (1.2-3.4); Absolute Monocytes 1.2 10^3/uL (0.1-0.6); Absolute Neutrophils 6.9 10^3/uL (1.4-6.5); Hematocrit 48.5 % (39.0-52.0); Hemoglobin 16.3 g/dL (13.0-18.0); Mean Corp Hgb Conc. 33.6 g/dL (33.0-37.0); Mean Corpuscular Hgb 30.6 pg (27.0-31.0); Mean Corpuscular Volume 91.2 fL (80.0-94.0); Mean Platelet Volume 10.8 fL (7.4-10.4); Nucleated Red Blood Cells % 0 % (-); Platelet Count 210 10^3/uL (130-400); Red Blood Cell Count 5.32 10^6/uL (4.70-6.10); Red Cell Dist. Width 14.2 % (11.5-14.5); White Blood Cell Count 9.9 10^3/uL (4.8-10.8)
[2024-08-25 12:45] LABS: ALT (SGPT) 20 U/L (0-50); AST (SGOT) 22 U/L (17-59); Albumin 3.9 g/dl (3.5-5.0); Alkaline Phosphatase 114 U/L (38-126); Blood Urea Nitrogen 13 mg/dl (9-20); Calcium 9.4 mg/dl (8.4-10.2); Carbon Dioxide 26 mmol/L (22-30); Chloride 103 mmol/L (98-107); Glucose 117 mg/dl (70-99); Potassium 4.6 mmol/L (3.5-5.1); Sodium 137 mmol/L (135-145); Total Bilirubin 1.2 mg/dl (0.2-1.3); Total Protein 6.9 g/dl (6.3-8.2); eGFR > 60.00
[2024-08-25 14:15] VITALS: BP 113/82
--- NOTE | 2024-08-25 15:26 | ED.GENMED ---
History of Present Illness
General
Chief Complaint: Weakness
Time Seen by Provider: 08/25/24 15:07
History of Present Illness
History of Present Illness:
74-year-old male with history of Parkinson's and neuropathy presents to the emergency department for evaluation of increasing leg weakness and frequent falls. He resides at home alone, currently being visited by a friend from out of town who is
concerned for his functionality. He has fallen several times in the past week including 'a hard fall' yesterday. He denies any head strike or loss of consciousness. When questioned about symptoms the patient states 'I feel like shit'. He uses a
rollator to get around his home, indicates that he has been able to independently get himself from bed to bathroom to kitchen and has been continuing to eat and drink. He has meals that are delivered to him and does not leave the house. He does
not wish to go home today
Past History
Past History
ED Past Medical History: Cancer (Skin cancer, Prostate Ca with radiation), HTN, Hypothyroidism, Psychiatric (Depression) and Other (Neuropathy, Parkinson's)
ED Past Surgical History: Orthopedic (Left hip replacement) and Other (Umbilical hernia, Mohs right upper chest)
Social History
Tobacco: Former smoker
Alcohol: Occasional
Personal: Single
Living: alone
Review of Systems
Review of Systems
Allergies reviewed?: Yes
All Other Systems: ROS reviewed and negative except as documented in HPI and ROS
Phy Exam
Physical Exam
Physical Exam:
GEN: Well appearing, NAD, WDWN
HEENT: Oral mucosa moist, no scleral icterus
Cardiac: Regular rate
Lung: No respiratory distress, no tachypnea
MSK: No gross deformity or injuries
Skin: Good color, no pallor or jaundice, no rashes
Neuro: AO x3, moves all extremities freely
Psych: Calm, cooperative
Course
Orders/Labs/Results
Orders:
Orders
08/25/24 12:02
Ankle, Right 3 view CR [CR Ankle - Right Min 3 Views *] Urgent
Comment:
Reason For Exam: fall, pain
08/25/24 12:06
Complete Blood Count/With Diff Urgent
Comprehensive Metabolic Panel Urgent
TSH Urgent
Comment: ADD ON
08/25/24 Dinner
Regular
At Your Request: Limited, Channel Sales Manager Required
08/25/24 15:25
Add On- LAB Urgent
Tests Added?: tsh
08/25/24 15:26
Pt Eval And Treat Urgent
Activity Level: As Tolerated
08/25/24 16:04
Case Management Consult ONCE
Case Management Consult: Penitentiary Placement
08/25/24 17:30
Admit/Transfer Patient As Directed
Co-Sign Provider:
Level of Care: Observation services
Assign to:: Medical/Surgical
Physician / Group: Artemio Proctor
Diagnosis: Ambulatory dysfunction, Parkinson's Disease
PRN Pain Medication Management As Directed
May give lesser potent ordered pain med per pt: Yes
preference::
Protocol:: Medication orders for pain may be administered in a
manner that supports deferring to patient preference
when the pt is:
- Requesting an ordered lesser potent pain medication.
Least to most potent pain medications are defined
as: acetaminophen < NSAID < tramadol < opioids
(morphine, oxycodone, hydromorphone).
- Requesting a lesser dose of the same medication IF
ORDERED.
- Requesting a less intrusive route of administration
if both routes are prescribed by the provider (PO <
IV).
08/25/24 17:31
Code Status As Directed
Resuscitation Status: Do not resuscitate
Reached after discussion with pt or family/Healthcare POA: Yes
Decision communicated with: patient and friend/POA
08/25/24 17:32
DNR Bracelet Application ONCE
08/25/24 17:50
Urinalysis Reflex To Culture Urgent
Date Specimen was Collected: 08/25/24
Time Specimen was Collected: 17:49
Abnormal Lab Results
08/25/24
12:06
MPV 10.8 H fL
(7.4-10.4)
Abs Immat Gran (auto) 0.1 H 10^3/uL
(0-0.05)
Absolute Neuts (auto) 6.9 H 10^3/uL
(1.4-6.5)
Absolute Monos (auto) 1.2 H 10^3/uL
(0.1-0.6)
Immature Gran % 1.4 H %
(0-0.5)
Lymphocytes % 17.0 L %
(20.5-51.1)
Monocytes % 11.8 H %
(1.7-9.3)
Glucose 117 H mg/dl
(70-99)
08/25/24 12:06
08/25/24 12:06
Vital Signs
Initial and Last Documented VS:
Initial Vital Signs
Temp Pulse Resp BP Pulse Ox
97.6 F 88 18 112/77 94
08/25/24 11:59 08/25/24 11:59 08/25/24 11:59 08/25/24 11:59 08/25/24 11:59
Last Documented Vital Signs
Temp Pulse Resp BP Pulse Ox
98.1 F 78 26 146/87 93
08/25/24 18:01 08/25/24 17:30 08/25/24 17:30 08/25/24 17:00 08/25/24 17:30
MDM/Problems Addressed
MDM/Problems Addressed:
Patient was evaluated by physical therapy and deemed not safe for discharge home. Unable to place directly in SNF from the ED today thus will admit to the hospitalist service for further management of weakness
*Critical Care Note
Total Time (30-74mins, 75-104mins- exclusive of procedures): Not Applicable
ED Attending Note
-
Portions of this chart may have been created with voice recognition software.� Occasional wrong word or��sound alike� substitutions may have occurred due to the inherent limitations of voice recognition software.
Discharge Plan
Departure
Patient Disposition: Admit
Date of Disposition: 08/25/24
Time of Disposition: 16:15
Presentation/result/management discussed w/ accepting MD/DO: Hospitalist
Discharge Problem:
Ambulatory dysfunction, Parkinson disease
Interventions
Interventions:
*Risk Screen - Suicide Last Done: 08/25/24 11:59
*General Assessment Last Done: 08/25/24 11:59
*Neglect/Abuse Screening Last Done: 08/25/24 11:59
ED- Fall Risk Assessment Last Done: 08/25/24 16:07
ED- Neurological Assessment Last Done: 08/25/24 18:02
ED- Pulmonary Assessment Last Done: 08/25/24 16:07
[2024-08-25 16:06] VITALS: BP 127/74; BP 148/83; PULSE 84; O2SAT 93
--- NOTE | 2024-08-25 16:14 | CM ---
Addendum entered by Shelly Obrien RN 08/25/24 17:53:
Patient is not eligible for MSSP program.
Original Note:
CM reviewed medical records. Patient is Medicare Prime and does not have funding for placement from the emergency room. CM inquired if patient was eligible for MSSP program. CM awaiting feedback.
[2024-08-25 16:51] LABS: TSH 1.85 uIU/ml (0.47-4.68)
--- NOTE | 2024-08-25 16:59 | HPS.HSE ---
Family Physician
-
Family Physician: Андрей Manriquez
Chief Complaint
-
multiple mechanical falls
History of Present Illness
Patient is a 74-year-old male with past medical history significant for hypertension and Parkinson's Disease who presented to [facility] ED for evaluation of increasing leg weakness and frequent falls. Patient states he has multiple falls
at home over past few months, he denies hitting his head, any injuries or loss of conciousness. Patient had a friend visiting from out of town who had him come for evaluation s/p multiple falls at home. Patient reports that he lives at home alone
and with help of friend/POA is currently searching for superintendent terminal placement, had appointment scheduled for tomorrow at [facility]. He stated he was followed at [facility] for Parkinson's and they discontinued all medications as they felt they were not
effective. [facility] team also had patient repeat a driving test in which he failed so no longer is able to drive, he currently has all essentials delivered to his home. Patient denies any recent sickness, fever, chills, dizziness, cough, shortness of
breath, chest pain, nausea, vomiting, constipation, diarrhea or urinary symptoms. He ambulates at home with rolling walker.
Medical History
Past Medical History
Past Medical History: Reports Other
Additional Past Medical History:
essential hypertension
Parkinson's Disease
sleep apnea
Hx prostate cancer
Hx skin cancer
osteoarthritis
Past Surgical History: Reports Other
Additional Past Surgical History:
total right hip replacement
Social History
Tobacco: Former Smoker (quit in 1999, has a 30 pack year history )
Alcohol: Occasional
Drug: None
Living: Alone
Employment: Retired
Family History
Family History: Not pertinent
Allergies / Home Medications
Allergies reflects when Allergies were last updated in [employer].
Home Medications with original date entered in [employer]
Allergy/Medication List:
Allergies
Allergy/AdvReac Type Severity Reaction Status Date / Time
adhesive Allergy inflamation Verified 07/20/24 16:08
Home Medications
amlodipine 5 mg tablet 5 mg PO DAILY Blood Pressure 10/23/23
valsartan 80 mg tablet 80 mg PO DAILY Blood Pressure 10/23/23
Review of Systems
-
History Source: Patient
Constitutional: Reports No Symptoms
EENT: Reports No Symptoms
Respiratory: Reports No Symptoms
Cardiac: Reports No Symptoms
Abdomen/GI: Reports No Symptoms
: Reports No Symptoms
Musculoskeletal: Reports Other (multiple mechanical falls )
Skin: Reports No Symptoms
Neurological: Reports Weakness
Endocrine: Reports No Symptoms
Hematologic/Lymphatic: Reports No Symptoms
Psych: Reports No Symptoms
Physical Exam
Vital Signs
Vital Signs
Temp Pulse Resp BP Pulse Ox
97.6 F 81 28 113/82 96
08/25/24 11:59 08/25/24 16:15 08/25/24 16:15 08/25/24 14:15 08/25/24 16:15
Physical Exam
General: Well Developed, Well Nourished, No Apparent Distress, Comfortable and Conversant
HEENT: NormoCephalic, Moist mucous membranes, Atraumatic, [place] Conjunctivae, Nose Appears Normal and Ears Appear Normal
Respiratory: Clear and Non Labored Respirations
Cardiac: S1/S2 and Regular Rhythm; No Murmur or Rub
Breast: Deferred by me
GI: Soft, Non Tender, Non Distended and Normal Bowel Sounds; No Organomegaly
Rectal: Deferred by Provider
Genito-urinary: Deferred by me
Musculoskeletal: No Clubbing, No Cyanosis and No Edema
Skin: Warm and IV/Catheter Site; No Rash
Neuro: Awake, Alert, AO x 3 and Nonfocal/grossly intact
Psych: Calm and Intact Judgment/Insight
Laboratory Results
-
08/25/24 12:06
08/25/24 12:06
Laboratory Results
Total Bilirubin 1.2 mg/dl (0.2-1.3) 08/25/24 12:06
AST 22 U/L (17-59) 08/25/24 12:06
ALT 20 U/L (0-50) 08/25/24 12:06
Alkaline Phosphatase 114 U/L (38-126) 08/25/24 12:06
Data Reviewed
-
Diagnostic Radiology: Report Reviewed by me (Right ankle: No acute osseous abnormality.)
Lab Data: Labs Reviewed by me
Impression/Plan
-
IMPRESSION/PLAN:
#ambulatory dysfunction
multiple mechanical falls
Right ankle x-ray: No acute osseous abnormality.
- Admit to med/surg
- consult case management
- PT/OT consult
#essential hypertension
- continue amlodipine and valsartan
#osteoarthritis
s/p total right hip replacement
#Parkinson's Disease
follows at [facility], team discontinued medications as they found not helpful
#sleep apnea
- CPAP to sleep
#Hx prostate cancer
s/p radiation
#Hx skin cancer
s/p multiple MOHS procedures
Code status: DNR
DVT prophylaxis: Lovenox sq
[2024-08-25 17:00] VITALS: BP 146/87
[2024-08-25 17:47] VITALS: BMI 31.7
[2024-08-25 18:07] LABS: Urine Albumin 2+ (Neg - Trace); Urine Bilirubin Negative (Negative); Urine Character Clear (Clear); Urine Color Yellow; Urine Glucose Negative (Negative); Urine Ketone Negative (Negative); Urine Leukocyte 1+ (Negative); Urine Nitrite Negative (Negative); Urine Occult Blood 3+ (Negative); Urine Urobilinogen 1+ (Neg - 1+)
--- NOTE | 2024-08-25 18:12 | W.PN.UPDATE ---
Update Note
Progress Note Update
This is an addendum to the H&P written by Heather Lowry on 08/25/2024.� Patient seen and examined independently with LOADMASTER.
75-year-old male past medical history of hypertension, Parkinson disease, osteoarthritis, prostate cancer status post radiation, skin cancer, presenting with frequent falls with fall yesterday.� No head injury.� Complaining of right ankle�soreness.�
Ankle x-ray negative. He lives alone.
PT/OT, case management.
[2024-08-25 18:20] LABS: Urine Squamous Cell 0-2 /LPF (Few)
[2024-08-25 18:21] LABS: Urine Bacteria Few (Negative); Urine Mucus Moderate; Urine White Cell 0-2 /HPF (0-5)
[2024-08-25 20:00] VITALS: BP 128/77; BMI 30.6
--- NOTE | 2024-08-25 20:00 | PTCARENOTE ---
Pt arrived to [facility] from ED, pullover assist x3. Pt is AAOx3, able to make needs known. Bed alarm in place d/t recent falls. Pt oriented to room, call roe in reach, VSS. Plan of care reviewed with pt.
[2024-08-25] MEDS: LOVENOX 40 MG SC (21:13)
[2024-08-25 23:00] VITALS: BP 135/84
[2024-08-26 07:23] VITALS: BP 153/89
[2024-08-26] MEDS: DIOVAN 80 MG PO (08:10)
[2024-08-26] MEDS: NORVASC 5 MG PO (08:11)
--- NOTE | 2024-08-26 10:41 | VATNOTE ---
No IV needs
[2024-08-26 11:00] VITALS: BP 142/85
--- NOTE | 2024-08-26 11:17 | W.PN.HOSP.TC ---
Today's Communication/Plan
-
monitor vitals
see plan
dc when has placement; CM aware
cw BP meds
Assessment / Plan
Assessment / Plan
General: Well Developed, Well Nourished, No Apparent Distress, Comfortable and Conversant
HEENT: NormoCephalic, Moist mucous membranes, Atraumatic, [place] Conjunctivae, Nose Appears Normal and Ears Appear Normal
Respiratory: Clear and Non Labored Respirations
Cardiac: S1/S2 and Regular Rhythm; No Murmur or Rub
GI: Soft, Non Tender, Non Distended and Normal Bowel Sounds
Musculoskeletal: No Edema
Neuro: Awake, Alert, AO x 3 and Nonfocal/grossly intact
Psych: Calm and Intact Judgment/Insight
ambulatory dysfunction
multiple mechanical falls
Right ankle x-ray: No acute osseous abnormality.
- CM following
- PT/OT rec SNF
essential hypertension
- continue amlodipine and valsartan
osteoarthritis
s/p total right hip replacement
Parkinson's Disease
follows at [facility] [place], team discontinued medications as they found not helpful
hx of hypothyroidism
Reports does not take any Synthroid anymore
TSH wnl
sleep apnea
- CPAP to sleep
Hx prostate cancer
s/p radiation
Hx skin cancer
s/p multiple MOHS procedures
Code status: DNR
DVT prophylaxis: Lovenox sq
Anticipated Discharge: Today
Subjective/Interval History
-
Date of Service: August 26, 2024
Denies pain
Objective Data
-
Vital Signs:
Vital Signs
Temp Pulse Resp BP Pulse Ox
97.6 F 69 20 153/89 93
08/26/24 07:23 08/26/24 08:11 08/26/24 07:23 08/26/24 08:11 08/26/24 07:23
I&O
08/25/24 08/26/24 08/27/24
06:59 06:59 06:59
Intake Total 480 / 480
Output Total 875 / 875
Balance -395 / -395
--- NOTE | 2024-08-26 11:40 | CM ---
CM reviewed chart, consult received for discharge planning. CM spoke with Inessa from [facility], patients friend/POA Kait submitted financials/LTC information for patient. [facility] asking to Facetime patient, patient agreeable. Patient
agrees he needs LTC placement. [facility] able to accept for LTC placement today, patients POA will provide transportation to facility, VM left for POA to confirm. Update to Hospitalist and Nurse. Patient agreeable to discharge to [facility]
Pam.
Plan; discharge to [facility], [facility] to provide transportation.
[facility]
Report: [phone]
--- NOTE | 2024-08-26 11:48 | W.DCSUMMARY ---
Discharge Summary
Discharge Data
Date of Admission: 08/25/24
Date of Discharge: 08/26/24
-
Pending Results: No
Hospital Course
74-year-old male with past medical history of hypothyroidism, prostate cancer, skin cancer, Parkinson's disease, osteoarthritis, essential hypertension came to the hospital with mechanical fall and ambulatory dysfunction. Patient was evaluated by
physical therapy who recommended SNF. Once patient had placement, he was then discharged with instructions to follow-up closely with all his physicians outpatient.
Discharge Plan
-
Patient Disposition: Other
Discharge Diagnosis/Procedures: Ambulatory dysfunction
Mechanical fall
Social hypertension
Osteoarthritis
Parkinson's disease
Sleep Apnea
Diet: As tolerated
Activity: With assistance and As tolerated
Driving Restrictions: No driving
Bathing Restrictions: None
Activity Restrictions/Additional Instructions:
Follow-up with your neurologist outpatient
Referrals:
Андрей Manriquez, [Family Provider] - in less than 1 week
Prescriptions:
Continued
valsartan 80 mg tablet
80 mg PO DAILY
amlodipine 5 mg tablet
5 mg PO DAILY
Discharge Orders:
Discharge Patient (As Directed); Ordered 08/26/24
Ordered By: Sushil Mc
Discharge Date and Time
Discharge Date/Time: 08/26/24 13:00
Print Language: SPANISH
--- NOTE | 2024-08-26 13:08 | PTCARENOTE ---
Pt discharged to [facility] via family friends. Packet sent with pt. Pt wheeled to [facility].
== END 2024-08-26 13:00 ==
LOC: 4 WEST ACU 17:42
PROVIDERS: Physician Assistant; Student in an Organized Health Care Education/Training Program; ADMITTING PHYSICIAN Hospitalist; ATTENDING PHYSICIAN Internal Medicine; EMERGENCY PHYSICIAN Emergency Medicine; FAMILY PHYSICIAN Family Medicine
DX: R26.2 Difficulty in walking, not elsewhere classified (principal); R53.1 Weakness; G20.A1 Parkinson's disease without dyskinesia, without mention of fluctuations; M25.571 Pain in right ankle and joints of right foot; I10 Essential (primary) hypertension; E03.9 Hypothyroidism, unspecified; G47.30 Sleep apnea, unspecified; G62.9 Polyneuropathy, unspecified; R22.41 Localized swelling, mass and lump, right lower limb; F32.A Depression, unspecified; W19.XXXA Unspecified fall, initial encounter; Y93.9 Activity, unspecified; Y92.009 Unspecified place in unspecified non-institutional (private) residence as the place of occurrence of the external cause; Z85.828 Personal history of other malignant neoplasm of skin; Z85.46 Personal history of malignant neoplasm of prostate; Z91.81 History of falling; Z60.2 Problems related to living alone; Z87.891 Personal history of nicotine dependence; Z96.643 Presence of artificial hip joint, bilateral; Z66 Do not resuscitate; M19.90 Unspecified osteoarthritis, unspecified site; Z91.048 Other nonmedicinal substance allergy status; Z92.3 Personal history of irradiation
CPT/HCPCS: 73610; 80053; 81003; 81015; 84443; 85025; 87086; 94660; 99284; G0378

== ENCOUNTER → 2024-10-18 09:57 | Outpatient (REF) | payer MEDICARE, SELFPAY ==
[2024-10-18 10:45] LABS: % Basophils 0.8 % (0-2); % Eosinophils 0.4 % (0-6); % Lymphocytes 18.1 % (20.5-51.1); % Monocytes 10.5 % (1.7-9.3); % Neutrophils 69.2 % (42.2-75.2); Absolute Basophils 0.1 10^3/uL (0-0.2); Absolute Immature Granulocytes 0.1 10^3/uL (0-0.05); Absolute Lymphocytes 1.4 10^3/uL (1.2-3.4); Absolute Monocytes 0.8 10^3/uL (0.1-0.6); Absolute Neutrophils 5.4 10^3/uL (1.4-6.5); Hematocrit 45.7 % (39.0-52.0); Hemoglobin 15.3 g/dL (13.0-18.0); Mean Corp Hgb Conc. 33.5 g/dL (33.0-37.0); Mean Corpuscular Hgb 30.8 pg (27.0-31.0); Mean Corpuscular Volume 92.1 fL (80.0-94.0); Mean Platelet Volume 10.9 fL (7.4-10.4); Nucleated Red Blood Cells % 0 % (-); Platelet Count 234 10^3/uL (130-400); Red Blood Cell Count 4.96 10^6/uL (4.70-6.10); Red Cell Dist. Width 13.2 % (11.5-14.5); White Blood Cell Count 7.8 10^3/uL (4.8-10.8)
[2024-10-18 10:56] LABS: ALT (SGPT) 14 U/L (0-50); AST (SGOT) 16 U/L (17-59); Albumin 3.7 g/dl (3.5-5.0); Alkaline Phosphatase 89 U/L (38-126); Blood Urea Nitrogen 10 mg/dl (9-20); Calcium 9.1 mg/dl (8.4-10.2); Carbon Dioxide 27 mmol/L (22-30); Chloride 104 mmol/L (98-107); Glucose 87 mg/dl (70-99); Sodium 139 mmol/L (135-145); Total Bilirubin 0.8 mg/dl (0.2-1.3); Total Protein 6.4 g/dl (6.3-8.2); eGFR > 60.00
[2024-10-18 11:11] LABS: Free T4 1.05 ng/dl (0.78-2.19)
[2024-10-18 11:25] LABS: PSA, Total - Screen 0.18 ng/ml (0.0-4.0); TSH 2.57 uIU/ml (0.47-4.68)
== END ==
LOC: OLABN 09:57
PROVIDERS: ATTENDING PHYSICIAN Student in an Organized Health Care Education/Training Program
DX: Z85.46 Personal history of malignant neoplasm of prostate (principal); G47.33 Obstructive sleep apnea (adult) (pediatric); I10 Essential (primary) hypertension; E03.9 Hypothyroidism, unspecified; Z12.5 Encounter for screening for malignant neoplasm of prostate
CPT/HCPCS: 36415; 80053; 84403; 84439; 84443; 85025; G0103

== ENCOUNTER → 2024-11-18 11:04 | Outpatient (REF) | payer MEDICARE, SELFPAY ==
[2024-11-18 11:49] LABS: % Eosinophils 0.1 % (0-6); % Lymphocytes 20.4 % (20.5-51.1); % Monocytes 10.7 % (1.7-9.3); % Neutrophils 66.8 % (42.2-75.2); Absolute Basophils 0.1 10^3/uL (0-0.2); Absolute Immature Granulocytes 0.1 10^3/uL (0-0.05); Absolute Lymphocytes 1.6 10^3/uL (1.2-3.4); Absolute Monocytes 0.9 10^3/uL (0.1-0.6); Absolute Neutrophils 5.4 10^3/uL (1.4-6.5); Hemoglobin 16.4 g/dL (13.0-18.0); Mean Corp Hgb Conc. 32.8 g/dL (33.0-37.0); Mean Corpuscular Hgb 30.4 pg (27.0-31.0); Mean Corpuscular Volume 92.6 fL (80.0-94.0); Mean Platelet Volume 11.4 fL (7.4-10.4); Nucleated Red Blood Cells % 0 % (-); Platelet Count 230 10^3/uL (130-400); Red Cell Dist. Width 13.1 % (11.5-14.5); White Blood Cell Count 8.1 10^3/uL (4.8-10.8)
[2024-11-18 12:00] LABS: ALT (SGPT) 21 U/L (0-50); AST (SGOT) 20 U/L (17-59); Albumin 4.3 g/dl (3.5-5.0); Alkaline Phosphatase 76 U/L (38-126); Blood Urea Nitrogen 12 mg/dl (9-20); Calcium 9.2 mg/dl (8.4-10.2); Carbon Dioxide 28 mmol/L (22-30); Chloride 107 mmol/L (98-107); Glucose 86 mg/dl (70-99); Sodium 142 mmol/L (135-145); Total Bilirubin 0.8 mg/dl (0.2-1.3); Total Protein 7.5 g/dl (6.3-8.2); eGFR > 60.00
[2024-11-18 17:12] LABS: Urine Albumin Negative (Neg - Trace); Urine Bilirubin Negative (Negative); Urine Character Clear (Clear); Urine Color Yellow; Urine Glucose Negative (Negative); Urine Ketone Negative (Negative); Urine Leukocyte Negative (Negative); Urine Nitrite Negative (Negative); Urine Occult Blood 1+ (Negative); Urine Specific Gravity 1.015 (<1.030); Urine Urobilinogen Negative (Neg - 1+)
[2024-11-18 17:21] LABS: Urine Bacteria Few (Negative); Urine Squamous Cell 0-2 /LPF (Few); Urine White Cell 0-2 /HPF (0-5)
== END ==
LOC: OLABN 11:04
PROVIDERS: ATTENDING PHYSICIAN Student in an Organized Health Care Education/Training Program
DX: G20.C Parkinsonism, unspecified (principal); R44.1 Visual hallucinations; F41.9 Anxiety disorder, unspecified; E03.3 Postinfectious hypothyroidism; R35.0 Frequency of micturition
CPT/HCPCS: 36415; 80053; 81003; 81015; 85025; 87086

== ENCOUNTER → 2024-12-24 11:04 | Outpatient (REF) | payer MEDICARE, SELFPAY ==
[2024-12-24 11:45] LABS: % Basophils 0.8 % (0-2); % Immature Granulocytes 1.3 % (0-0.5); % Lymphocytes 18.6 % (20.5-51.1); % Monocytes 10.4 % (1.7-9.3); % Neutrophils 68.9 % (42.2-75.2); Absolute Basophils 0.1 10^3/uL (0-0.2); Absolute Immature Granulocytes 0.1 10^3/uL (0-0.05); Absolute Lymphocytes 1.6 10^3/uL (1.2-3.4); Absolute Monocytes 0.9 10^3/uL (0.1-0.6); Hematocrit 47.3 % (39.0-52.0); Hemoglobin 15.6 g/dL (13.0-18.0); Mean Corpuscular Hgb 30.3 pg (27.0-31.0); Mean Corpuscular Volume 91.8 fL (80.0-94.0); Mean Platelet Volume 11.2 fL (7.4-10.4); Nucleated Red Blood Cells % 0 % (-); Platelet Count 235 10^3/uL (130-400); Red Blood Cell Count 5.15 10^6/uL (4.70-6.10); Red Cell Dist. Width 13.6 % (11.5-14.5); White Blood Cell Count 8.7 10^3/uL (4.8-10.8)
[2024-12-24 12:08] LABS: Blood Urea Nitrogen 10 mg/dl (9-20); Calcium 9.3 mg/dl (8.4-10.2); Carbon Dioxide 24 mmol/L (22-30); Chloride 110 mmol/L (98-107); Glucose 103 mg/dl (70-99); Potassium 4.1 mmol/L (3.5-5.1); Sodium 142 mmol/L (135-145); eGFR > 60.00
== END ==
LOC: OLABN 11:04
PROVIDERS: ATTENDING PHYSICIAN Student in an Organized Health Care Education/Training Program
DX: I10 Essential (primary) hypertension (principal)
CPT/HCPCS: 36415; 80048; 85025

== ENCOUNTER → 2024-12-28 09:25 | Outpatient (REF) | payer MEDICARE, SELFPAY ==
[2024-12-28 11:06] LABS: PSA, Total - Screen 0.22 ng/ml (0.0-4.0)
== END ==
LOC: OLABN 09:25
PROVIDERS: ATTENDING PHYSICIAN Student in an Organized Health Care Education/Training Program
DX: N42.9 Disorder of prostate, unspecified (principal); Z12.5 Encounter for screening for malignant neoplasm of prostate
CPT/HCPCS: 36415; G0103

== ENCOUNTER → 2025-03-04 11:34 | Outpatient (REF) | payer MEDICARE, SELFPAY ==
[2025-03-04 12:59] LABS: TSH 2.62 uIU/ml (0.47-4.68)
== END ==
LOC: OLABN 11:34
PROVIDERS: ATTENDING PHYSICIAN Student in an Organized Health Care Education/Training Program
DX: E03.9 Hypothyroidism, unspecified (principal)
CPT/HCPCS: 36415; 84439; 84443